=== PATIENT | male | born 1970 | race Caucasian/White ===

== ENCOUNTER 2020-07-08 08:50 | Inpatient (IN) ==
--- NOTE | 2020-07-08 09:55 | Emergency Department Note ---
Impression & Plan Diabetic peripheral neuropathy associated with type 1 diabetes mellitus, Diabetic ulcer of toe of left foot associated with diabetes mellitus due to underlying condition, with necrosis of bone, Osteomyelitis of toe of left foot ED Provider Note CHIEF COMPLAINT: Left foot/toe wound HISTORY OF PRESENTING ILLNESS: This is a 49-year-old male who presents to the emergency department by private vehicle with complaint of a left toe wound that he first noticed about 5 days ago. Patient states that he has followed at [facility] wound care for another diabetic ulcer on the left foot for the past 1 month that he states has been improving. He states that he showed this new wound to his wound care nurse and they were concerned for an infection and sent him here for evaluation. Patient denies any fevers or chills. He states he has very bad neuropathy in his feet and has not noticed any pain. He does not recall any known injury to the foot, but does note that the toe is significantly swollen from normal. He states "when I first found it, my little toe was almost going into the other toe and I had to pull it out, that is when I saw the hole in my toe."He denies any pain and rates his pain level 0/10. He states that his tetanus is up-to-date. REVIEW OF SYSTEMS: A complete 10 point review of systems was reviewed with the patient with pertinent positives and negatives as per history of present illness. All else were negative. PAST MEDICAL HISTORY: Type 2 diabetes, hypertension, diabetic foot ulcer, diabetic peripheral neuropathy SOCIAL HISTORY: Lives at home, he denies tobacco use ALLERGIES: Reviewed in chart and with the patient PHYSICAL EXAM: CONSTITUTIONAL: Pleasant and cooperative. Nontoxic-appearing and in no acute distress. Well appearing and well nourished. HEENT: Normocephalic, atraumatic. NECK: Supple, full active range of motion without discomfort. RESPIRATORY: Clear to auscultation bilaterally with no wheezing, crackles, rhonchi or stridor. Equal expansion bilaterally. CARDIOVASCULAR: Regular rate and rhythm with no murmurs, rubs or gallops. Normal peripheral perfusion. No edema. GASTROINTESTINAL: Soft, nontender, nondistended. Bowel sounds present in all quadrants. MUSCULOSKELETAL: There is a diabetic ulcer on the ball of the left foot which appears to be healing fairly well. The left fourth toe appears swollen, erythematous, and is notable to have a deep ulceration on the lateral aspect of the toe. There is no erythema, swelling, or lymphangitic streaking involving the rest of the foot. Full range of motion of the left ankle with no pain. Capillary refill 2-3 seconds. INTEGUMENTARY: No rash or other significant dermatologic conditions noted. NEUROLOGIC: Alert and oriented X 4 with normal affect. Normal strength in all 4 extremities. Poor sensation to light touch in the bilateral feet, but able to move the toes normally. Normal speech. ED COURSE AND MEDICAL DECISION MAKING: CC: Patient presenting with complaint of left foot/toe wound DIFFERENTIAL DIAGNOSIS: Includes, but not limited to diabetic foot ulcer, nicholas lulitis, osteomyelitis, MRSA infection, fracture, dislocation, retained foreign body, among others. INTERPRETATION OF LABS: No leukocytosis, no anemia, normal platelets, no significant electrolyte abnormalities, normal renal function elevated BUN with normal creatinine, mildly elevated ESR and CRP. MEDICATION RECONCILIATION: I attest that I have personally reviewed the patient's current medication list. INITIAL VITAL SIGNS REVIEW: I reviewed the patient's initial vital signs and interpret them as follows: T: Afebrile; BP: Normotensive; HR: Within normal limits; RR: Within normal limits; Pulse Ox: Within normal limits on room air. MDM SUMMARY: Patient was evaluated at bedside, history and physical exam performed. Patient is alert and oriented, in no acute distress, resting calmly in stretcher. He is afebrile and nontoxic-appearing. There is moderate swelling, erythema, and a deep ulceration on the lateral aspect of the left fourth toe. No purulent discharge or foul odor. Orders were placed for labs including inflammatory markers, blood cultures x2, x-rays of the left foot and left fourth toe to evaluate for diabetic foot wound/infection. Patient discussed with Dr. Hamlin, who agrees with my assessment, plan, and disposition. Labs and imaging reviewed, no leukocytosis or significant lab abnormalities. Mildly elevated inflammatory markers. X-rays of the foot and fourth toe notable for a subcentimeter area of osteomyelitis involving the distal lateral aspect of the fourth proximal phalanx with destruction of the distal articular cortex and associated joint space n arrowing of the fourth PIP joint suspicious for septic arthropathy. I spoke on the phone with Pepito Chowdhury PA-C with [facility] orthopedics, who agrees to evaluate the patient for possible surgery today. After evaluation by orthopedic surgery, it was felt that the patient should be admitted to the hospitalist team for IV antibiotics and they will plan to take him to the OR for toe amputation on morning. I spoke on the phone with Saad Sorto hospitalist, who agrees to evaluate the patient for the admission. She requested the patient be covered with vancomycin and Zosyn for now, these were ordered. Patient reassessed multiple times throughout ED stay, he has remained hem odynamically stable and afebrile, and pain-free. The patient was updated on all results and plan for admission and probable surgery, all questions were answered to the best of my ability and the patient verbalized understanding and agreement with this plan. The patient was stable at time of admission. The chart was completed utilizing [employer] Speech voice recognition software. Grammatical errors, random word insertions, pronoun errors, and incomplete sentences are an occasional consequence of this system due to software limitations, ambient noise, and hardware issues. Any formal questions or concerns about the content, text, or information contained within the body of this dictation should be directly addressed to the nurse practitioner for clarification. Past Med/Surg History Medical History (Updated 07/08/20 @ 18:31 by KELLEN Kiser) Acquired hallux valgus of right foot Acquired hammer toe of right foot Callus Diabetes mellitus, type II Foot ulcer due to secondary DM Hallux valgus (acquired), left foot Hammertoe of left foot Hypercholesterolemia Hypertension Surgical History Status post right foot surgery Family History Other Diabetes Lung cancer Social History Smoking Status: Never smoker Tobacco Type: Smokeless Tobacco (Dip or Chew) Hx Alcohol Use: Yes Alcohol type: beer and hard liquor Hx Substance Use: No Preferred Language: Jordanian Communication Ability: Effective Visual Impairment: No Limitations Hearing Ability: Normal County Court Judge Required: No Beliefs That Will Affect Care: None marital status: Current Living Situation: Spouse and Family Current Living Situation Comment: 2 kids, , & mother in law current occupational status: employed How many Children do You have: 2 Feels Safe at Home: Yes during the past year weight has: remained stable Assistive Devices: None Allergies Allergies Allergy/AdvReac Type Severity Reaction Status Date / Time ibuprofen [From Motrin] Allergy Intermediate Hives Verified 07/08/20 10:38 Home Meds Home Medications Medication Instructions Recorded Confirmed amlodipine 10 mg tablet 10 mg PO QAM 08/30/18 07/08/20 atorvastatin 20 mg tablet 20 mg PO QAM 08/30/18 07/08/20 lisinopril 20 mg tablet 20 mg PO QAM 08/30/18 07/08/20 metformin 1,000 mg tablet 1,000 mg PO BID 08/30/18 07/08/20 doxycycline hyclate 100 mg PO BID 07/08/20 07/08/20 empagliflozin [Jardiance] 10 mg PO QAM 07/08/20 07/08/20 Previous Rx's Medication Instructions Recorded Saccharomyces boulardii 250 mg 250 mg PO BID 60 Days #120 cap 07/04/20 capsule clindamycin HCl 300 mg capsule 300 mg PO tid 14 Days #42 cap 07/04/20 Results & Data (ED) Vital Signs Vital Signs - 24 hr 07/08/20 09:03 07/08/20 10:33 07/08/20 12:30 Temperature 36.5 C Temperature Source Temporal Artery Scan Pulse Rate 98 H Pulse Rate [Finger] 84 80 Respiratory Rate 16 18 16 Respiratory Effort / Characteristics Non-Labored Respiratory Depth Normal Normal Respiratory Pattern Regular Blood Pressure 113/74 Blood Pressure [Right Arm] 108/62 136/84 Blood Pressure Mean 87 Blood Pressure Mean [Right Arm] 77 101 Blood Pressure Position Sitting Pulse Oximetry 99 97 100 Oxygen Delivery Method Room Air Room Air Sepsis Recent Fever Within 48 Hours No Sepsis New/Unexplained Change in Mental Status Yes Sepsis Action Taken by Nursing No Action Required Laboratory Data Result diagrams: 07/08/20 10:04 07/08/20 10:04 Lab Results 07/08/20 07/08/20 07/08/20 Range/Units 10:04 10:04 10:04 WBC 8.23 (4.8-10.8) K/uL RBC 4.98 (4.7-6.1) M/uL Hgb 14.8 (14.0-18.0) g/dL Hct 41.5 L (42-52) % MCV 83.3 (80-100) fL MCH 29.7 (25-34) pg MCHC 35.7 (32-36) g/dL RDW Std Deviation 38.1 (36.4-46.3) fL RDW Coeff of Meño 12.6 (11.5-14.5) % Plt Count 316 (130-400) K/uL MPV 9.4 (7.4-10.4) fL Immature Gran % (Auto) 0.1 % Neut % (Auto) 71.0 % Lymph % (Auto) 17.6 % [place] % (Auto) 6.9 % Eos % (Auto) 3.9 % Baso % (Auto) 0.5 % Neut # (Auto) 5.84 (1.4-6.5) K/uL Lymph # (Auto) 1.45 (1.2-3.4) K/uL [place] # (Auto) 0.57 (0.11-0.59) K/uL Eos # (Auto) 0.32 (0-0.5) K/uL Baso # (Auto) 0.04 (0-0.2) K/uL Immature Gran # (Auto) 0.01 (0.00-0.02) K/uL ESR 35 H (0-15) mm/hr Sodium 135 L (136-145) mmol/L Potassium 4.8 (3.5-5.1) mmol/L Chloride 106 (98-107) mmol/L Carbon Dioxide 25 (21-32) mmol/L Anion Gap 4.0 (3-11) BUN 27 H (7-18) mg/dl Creatinine 0.99 (0.6-1.4) mg/dl Est Cr Clr Drug Dosing 105.6 ml/min Est GFR ( Amer) 103.2 Est GFR (Non-Af Amer) 89.1 BUN/Creatinine Ratio 27.6 H (10-20) Glucose 129 H (70-99) mg/dl Calcium 9.3 (8.5-10.1) mg/dl C-Reactive Protein 1.46 H (0-0.29) mg/dl COVID-19 Eval Order SARS-CoV-2 (PCR) (Negative) Influenza Type A (PCR) (Neg) Influenza Type B (PCR) (Neg) RSV (RT-PCR) (Neg) 07/08/20 07/08/20 Range/Units 12:35 12:35 WBC (4.8-10.8) K/uL RBC (4.7-6.1) M/uL Hgb (14.0-18.0) g/dL Hct (42-52) % MCV (80-100) fL MCH (25-34) pg MCHC (32-36) g/dL RDW Std Deviation (36.4-46.3) fL RDW Coeff of Meño (11.5-14.5) % Plt Count (130-400) K/uL MPV (7.4-10.4) fL Immature Gran % (Auto) % Neut % (Auto) % Lymph % (Auto) % [place] % (Auto) % Eos % (Auto) % Baso % (Auto) % Neut # (Auto) (1.4-6.5) K/uL Lymph # (Auto) (1.2-3.4) K/uL [place] # (Auto) (0.11-0.59) K/uL Eos # (Auto) (0-0.5) K/uL Baso # (Auto) (0-0.2) K/uL Immature Gran # (Auto) (0.00-0.02) K/uL ESR (0-15) mm/hr Sodium (136-145) mmol/L Potassium (3.5-5.1) mmol/L Chloride (98-107) mmol/L Carbon Dioxide (21-32) mmol/L Anion Gap (3-11) BUN (7-18) mg/dl Creatinine (0.6-1.4) mg/dl Est Cr Clr Drug Dosing ml/min Est GFR ( Amer) Est GFR (Non-Af Amer) BUN/Creatinine Ratio (10-20) Glucose (70-99) mg/dl Calcium (8.5-10.1) mg/dl C-Reactive Protein (0-0.29) mg/dl COVID-19 Eval Order CovFluRsv at [facility] SARS-CoV-2 (PCR) NEGATIVE (Negative) Influenza Type A (PCR) Negative (Neg) Influenza Type B (PCR) Negative (Neg) RSV (RT-PCR) Negative (Neg) Administered Medications Heparin Sodium (Porcine) (Heparin Sod 5,000 Unit/0.5 Ml Vial) 5,000 units SQ Q8 [facility] Stop: 07/09/20 13:59 Last Admin: 07/08/20 16:25 Dose: 5,000 units Documented by: [id number] Insulin Aspart (Insulin Aspart 100 Units/Ml 3 Ml Pen) 0 units SC ACHS [facility] Stop: 08/07/20 16:29 Last Admin: 07/08/20 17:48 Dose: 8 units Documented by: [id number] Cosigned by: [id number] Discontinued Medications Vancomycin HCl 2,500 mg/ (Sodium Chloride) 550 mls @ 200 mls/hr IV NOW ONE Stop: 07/08/20 16:04 Last Infusion: 07/08/20 17:52 Dose: 0 mls/hr Documented by: [id number] Admin: 07/08/20 14:19 Dose: 200 mls/hr Documented by: [id number] Piperacillin Sod/Tazobactam Sod (Zosyn) 4.5 gm in 120 mls @ 240 mls/hr IV NOW ONE Stop: 07/08/20 13:49 Last Infusion: 07/08/20 14:30 Dose: 0 mls/hr Documented by: [id number] Admin: 07/08/20 13:57 Dose: 240 mls/hr Documented by: [id number] Imaging Data Radiologist's Impression: Foot X-Ray 07/08/20 09:51 XR toe(s) LT min 2V, XR foot LT min 3V routine HISTORY: 49 years-old Male 4th toe, eval fx, osteo chronic pain of the left fourth toe with diabetic ulcer COMPARISON: None TECHNIQUE: 3 views of the left fourth toe with 3 views of the left foot FINDINGS: FOOT: Mild soft tissue swelling of the forefoot. No acute fracture or dislocation. Bipartite medial hallux sesamoid. No significant osteoarthritis. There is a 7 mm area of osseous erosion involving the distal lateral aspect of the fourth proximal phalanx with destruction of the mid and lateral distal articular cortex. There is associated moderate joint space narrowing of the fourth PIP joint. Moderate fourth digit soft tissue swelling. TOES: Osseous erosion as above involving the fourth proximal phalanx. IMPRESSION: Subcentimeter area of osteomyelitis involves the distal lateral aspect of the fourth proximal phalanx with partial destruction of the distal articular cortex. Moderate associated joint space narrowing of the fourth PIP joint is suspicious for associated septic arthropathy. ACT 112: Negative or not required by law. The above report was generated using voice recognition software. It may contain grammatical, syntax or spelling errors. Electronically signed by: Shakir Kamara M.D. 07/08/2020 10:28 AM Toe X-Ray 07/08/20 09:51 XR toe(s) LT min 2V, XR foot LT min 3V routine HISTORY: 49 years-old Male 4th toe, eval fx, osteo chronic pain of the left fourth toe with diabetic ulcer COMPARISON: None TECHNIQUE: 3 views of the left fourth toe with 3 views of the left foot FINDINGS: FOOT: Mild soft tissue swelling of the forefoot. No acute fracture or dislocation. Bipartite medial hallux sesamoid. No significant osteoarthritis. There is a 7 mm area of osseous erosion involving the distal lateral aspect of the fourth proximal phalanx with destruction of the mid and lateral distal articular cortex. There is associated moderate joint space narrowing of the fourth PIP joint. Moderate fourth digit soft tissue swelling. TOES: Osseous erosion as above involving the fourth proximal phalanx. IMPRESSION: Subcentimeter area of osteomyelitis involves the distal lateral aspect of the fourth proximal phalanx with partial destruction of the distal articular cortex. Moderate associated joint space narrowing of the fourth PIP joint is suspicious for associated septic arthropathy. ACT 112: Negative or not required by law. The above report was generated using voice recognition software. It may contain grammatical, syntax or spelling errors. Electronically signed by: Shakir Kamara M.D. 07/08/2020 10:28 AM Discharge Plan Visit Data Chief Complaint: Foot Injury/Pain Stated Complaint: REFERRED BY ED Provider: Antwan Hamlin ED Midlevel Provider: Radha Fonseca Discharge Problem: Diabetic peripheral neuropathy associated with type 1 diabetes mellitus, Diabetic ulcer of toe of left foot associated with diabetes mellitus due to underlying condition, with necrosis of bone, Osteomyelitis of toe of left foot Patient Disposition: Admitted As Inpatient Condition: Good Discharge Instructions Interventions: ED Discharge Assessment Last Done: 07/08/20 14:36
[2020-07-08 10:19] LABS: Basophils # (auto) 0.04 K/uL (0-0.2); Basophils % (auto) 0.5 %; Eosinophils # (auto) 0.32 K/uL (0-0.5); Eosinophils % (auto) 3.9 %; Hematocrit (blood only) 41.5 % (42-52); Hemoglobin 14.8 g/dL (14.0-18.0); Immature Granulocytes # (auto) 0.01 K/uL (0.00-0.02); Immature Granulocytes % (auto) 0.1 %; Lymphocytes # (auto) 1.45 K/uL (1.2-3.4); Lymphocytes % (auto) 17.6 %; Mean Corpuscular Hemoglobin 29.7 pg (25-34); Mean Corpuscular Hgb Conc 35.7 g/dL (32-36); Mean Corpuscular Volume 83.3 fL (80-100); Mean Platelet Volume 9.4 fL (7.4-10.4); Monocytes # (auto) 0.57 K/uL (0.11-0.59); Monocytes % (auto) 6.9 %; Neutrophils # (auto) 5.84 K/uL (1.4-6.5); Platelet Count 316 K/uL (130-400); RDW Coefficient of Variation 12.6 % (11.5-14.5); RDW Standard Deviation 38.1 fL (36.4-46.3); Red Blood Count 4.98 M/uL (4.7-6.1); White Blood Count 8.23 K/uL (4.8-10.8)
--- NOTE | 2020-07-08 10:29 | XRay Report ---
XR toe(s) LT min 2V, XR foot LT min 3V routine HISTORY: 49 years-old Male 4th toe, eval fx, osteo chronic pain of the left fourth toe with diabetic ulcer COMPARISON: None TECHNIQUE: 3 views of the left fourth toe with 3 views of the left foot FINDINGS: FOOT: Mild soft tissue swelling of the forefoot. No acute fracture or dislocation. Bipartite medial hallux sesamoid. No significant osteoarthritis. There is a 7 mm area of osseous erosion involving the distal lateral aspect of the fourth proximal phalanx with destruction of the mid and lateral distal articul ar cortex. There is associated moderate joint space narrowing of the fourth PIP joint. Moderate fourt h digit soft tissue swelling. TOES: Osseous erosion as above involving the fourth proximal phalanx. IMPRESSION: Subcentimeter area of osteomyelitis involves the distal lateral aspect of the fourth prox imal phalanx with partial destruction of the distal articular cortex. Moderate associated joint space narrowing of the fourth PIP joint is suspicious for associated septic arthropathy. ACT 112: Negative or not required by law. The above report was generated using voice recognition software. It may contain grammatical, syntax o r spelling errors. Electronically signed by: Shakir Kamara M.D. 07/08/2020 10:28 AM
[2020-07-08 10:38] LABS: BUN Creatinine Ratio 27.6 (10-20); Calcium 9.3 mg/dl (8.5-10.1); Creatinine Clr Calc Pharmacy 105.6 ml/min; Est GFR (African American) 103.2; Est GFR (Non-African American) 89.1; Potassium 4.8 mmol/L (3.5-5.1)
[2020-07-08 10:39] LABS: C Reactive Protein 1.46 mg/dl (0-0.29)
[2020-07-08] MEDS ORDERED: PIPERACILL/TAZOBAC CONSULT ACTIVE PRN (13:20)
[2020-07-08] MEDS ORDERED: PIPERACILLIN/TAZOBACTAM 4.5 GM/120 ML BAG IV ONE (13:20)
[2020-07-08] MEDS ORDERED: VANCOMYCIN HCL 2,500 MG in SODIUM CHLORIDE 0.9% 500 ML IV ONE (13:20)
[2020-07-08] MEDS ORDERED: VANCOMYCIN CONSULT ACTIVE PRN (13:20)
--- NOTE | 2020-07-08 13:53 | History & Physical Report ---
Date of Service July 08, 2020 Assessment & Plan (1) Osteomyelitis of toe of left foot: (2) Cellulitis of toe of left foot: (3) Diabetic ulcer of toe of left foot associated with diabetes mellitus due to underlying condition, with necrosis of bone: This is a 49yo M with a PMH of DM II, HTN, tobacco use and chronic diabetic foot wound who presents from wound care clinic with new wound on left fourth toe with evidence on XR of osteomyelitis. Toe and L foot XR with subcentimeter area of osteomyelitis involves the distal lateral aspect of the fourth proximal phalanx with partial destruction of the distal articular cortex. Moderate associated joint space narrowing of the fourth PIP joint is suspicious for assoc. septic arthropathy Afebrile, VS stable, no leukocytosis. Non toxic in appearance Has been on PO Clinda and doxy for wound on plantar aspect of L foot Evaluated by orthopedic service in ED. Recommending IV antibiotics and OR on Started IV vancomycin and Zosyn. Follow cultures Orthopedic service consulted (4) Diabetes mellitus, type II: Hold home agents SSI while in-patient BSG AC HS (5) Hypertension: Continue amlodipine and lisinopril DVT Ppx: SQ heparin Code status: FULL PCP: Fab Dispo: Admitted to med/surg. Plan to return home once medically stable. Patient seen in collaboration with Dr. Ross. Please see addendum. History of Present Illness Chief Complaint: L foot wound Primary Care Provider: Wilner Sanon DO This is a 49yo M with a PMH of DM II, HTN, tobacco use and chronic diabetic fo ot wound who presents from wound care clinic with new wound on left fourth toe. Patient has been following for wound on plantar aspect of left foot currently treated with clindamycin and doxycycline. Due to severe neuropathy, patient has no feeling in either foot and did not notice a new wound on lateral aspect of fourth toe until 3 days ago, when he took wrapping off of foot and had purulent drainage. Was seen in wound care clinic today for this new wound and was directed to ED for further evaluation. Denies any fever or chills. No headache, lightheadedness, chest pain, shortness of breath, nausea, vomiting, abdominal pain, dysuria, diarrhea or constipation. Allergies Allergy/AdvReac Type Severity Reaction Status Date / Time ibuprofen [From Motrin] Allergy Intermediate Hives Verified 07/08/20 10:38 Home Medications Medication Instructions Recorded Confirmed Type amlodipine 10 mg tablet 10 mg PO QAM 08/30/18 07/08/20 History atorvastatin 20 mg tablet 20 mg PO QAM 08/30/18 07/08/20 History lisinopril 20 mg tablet 20 mg PO QAM 08/30/18 07/08/20 History metformin 1,000 mg tablet 1,000 mg PO BID 08/30/18 07/08/20 History Saccharomyces boulardii 250 mg 250 mg PO BID 60 Days #120 cap 07/04/20 07/08/20 Rx capsule clindamycin HCl 300 mg capsule 300 mg PO tid 14 Days #42 cap 07/04/20 07/08/20 Rx doxycycline hyclate 100 mg PO BID 07/08/20 07/08/20 History empagliflozin [Jardiance] 10 mg PO QAM 07/08/20 07/08/20 History Past Med/Surg History Medical History (Updated 07/08/20 @ 15:26 by Alana Eubanks PA-C) Acquired hallux valgus of right foot Acquired hammer toe of right foot Callus Diabetes mellitus, type II Hallux valgus (acquired), left foot Hammertoe of left foot Hypercholesterolemia Hypertension Surgical History Status post right foot surgery Family History Other Diabetes Lung cancer Social History Smoking Status: Never smoker Tobacco Type: Smokeless Tobacco (Dip or Chew) Hx Alcohol Use: Yes Alcohol type: beer and hard liquor Hx Substance Use: No Preferred Language: Greenlandic Communication Ability: Effective Visual Impairment: No Limitations Hearing Ability: Normal [place] Stained Glass Required: No Beliefs That Will Affect Care: None marital status: Current Living Situation: Spouse and Family Current Living Situation Comment: 2 kids, , & mother in law current occupational status: employed How many Children do You have: 2 Feels Safe at Home: Yes during the past year weight has: remained stable Assistive Devices: None Review of Systems Review of Systems: At least ten systems reviewed and negative except as noted in the HPI. Physical Exam Physical Exam: General Appearance: WD/WN, vitals as above, NAD, sitting up in bed, pleasant, conversing easily Head: normocephalic, atraumatic Eyes: normal inspection, PERRL, conjunctivae normal, anicteric sclerae ENT: external ear and nose normal, oropharynx normal Neck: normal visual inspection, trachea midline, no thyromegaly Respiratory: normal respiratory effort, lungs clear to auscultation, no wheeze, rales, rhonchi. No accessory muscle use Cardiovascular: regular rate, rhythm, no murmur, normal peripheral pulses, no BLE edema. Vessels: no JVD Chest: normal inspection of chest Abdomen/GI: normal bowel sounds, soft, nontender, no hepatosplenomegaly Extremities/Musculoskeletal: L plantar aspect of foot with half dollar size ulceration. No drainage or surrounding erythema. L lateral 4th toe wound with purulent drainage, foul odor. No cyanosis or clubbing, extremities motor strength 5/5 Neurologic: PERRL, EOMI, accommodation nl, no face palsy, no dysarthria, CN's II-XI intact bilaterally and moves all extremities Psychiatric: A+Ox3, euthymic affect Skin: no rashes, normal color, warm/dry Results & Data Results & Data ([facility]) Vital Signs (Past 12 Hours) Vital Signs Temp Pulse Pulse Resp BP BP Pulse Ox 07/08/20 12:30 80 16 136/84 100 07/08/20 10:33 84 18 108/62 97 07/08/20 09:03 36.5 C 98 H 16 113/74 99 Laboratory Results Short CBC 07/08/20 Range/Units 10:04 WBC 8.23 (4.8-10.8) K/uL Hgb 14.8 (14.0-18.0) g/dL Hct 41.5 L (42-52) % Plt Count 316 (130-400) K/uL BMP 07/08/20 10:04 Sodium 135 L Potassium 4.8 Chloride 106 Carbon Dioxide 25 BUN 27 H Creatinine 0.99 Glucose 129 H Calcium 9.3 Diagnostic Findings Foot X-Ray 07/08/20 09:51 XR toe(s) LT min 2V, XR foot LT min 3V routine HISTORY: 49 years-old Male 4th toe, eval fx, osteo chronic pain of the left fourth toe with diabetic ulcer COMPARISON: None TECHNIQUE: 3 views of the left fourth toe with 3 views of the left foot FINDINGS: FOOT: Mild soft tissue swelling of the forefoot. No acute fracture or dislocation. Bipartite medial hallux sesamoid. No significant osteoarthritis. There is a 7 mm area of osseous erosion involving the distal lateral aspect of the fourth proximal phalanx with destruction of the mid and lateral distal articular cortex. There is associated moderate joint space narrowing of the fourth PIP joint. Moderate fourth digit soft tissue swelling. TOES: Osseous erosion as above involving the fourth proximal phalanx. IMPRESSION: Subcentimeter area of osteomyelitis involves the distal lateral aspect of the fourth proximal phalanx with partial destruction of the distal articular cortex. Moderate associated joint space narrowing of the fourth PIP joint is suspicious for associated septic arthropathy. ACT 112: Negative or not required by law. The above report was generated using voice recognition software. It may contain grammatical, syntax or spelling errors. Electronically signed by: Shakir Kamara M.D. 07/08/2020 10:28 AM Toe X-Ray 07/08/20 09:51 XR toe(s) LT min 2V, XR foot LT min 3V routine HISTORY: 49 years-old Male 4th toe, eval fx, osteo chronic pain of the left fourth toe with diabetic ulcer COMPARISON: None TECHNIQUE: 3 views of the left fourth toe with 3 views of the left foot FINDINGS: FOOT: Mild soft tissue swelling of the forefoot. No acute fracture or dislocation. Bipartite medial hallux sesamoid. No significant osteoarthritis. There is a 7 mm area of osseous erosion involving the distal lateral aspect of the fourth pro ximal phalanx with destruction of the mid and lateral distal articular cortex. There is associated moderate joint space narrowing of the fourth PIP joint. Moderate fourth digit soft tissue swelling. TOES: Osseous erosion as above involving the fourth proximal phalanx. IMPRESSION: Subcentimeter area of osteomyelitis involves the distal lateral aspect of the fourth proximal phalanx with partial destruction of the distal articular cortex. Moderate associated joint space narrowing of the fourth PIP joint is suspicious for associated septic arthropathy. ACT 112: Negative or not required by law. The above report was generated using voice recognition software. It may contain grammatical, syntax or spelling errors. Electronically signed by: Shakir Kamara M.D. 07/08/2020 10:28 AM Code Status & VTE Plan VTE Prophylaxis Plan VTE Prophylaxis will be ordered: Yes Supervising Physician Co-Signing Physician Notes I saw this patient with the physician special education teaching assistant, I participated in the history, physical, review of systems, and physical exam. I reviewed the medications with the patient and the physician special education teaching assistant and helped reconcile the medications. I helped take a detailed family and social history as well. I formulated the assessment and plan personally with the physician special education teaching assistant and went over it with the patient. ROS-No Headache, No Visual Changes, No Nausea, No Vomiting, No Fever, No Chills, No Neck Pain or Stiffness, No Chest Pain, No Palpitations, No SOB, No MALDONADO, No Cough, No Sputum, No Wheezing, No Abdominal Pain, No Diarrhea, No Hematemesis, No Hemoptysis, No Unexpected Weight Loss, No Flank pain, No Melena, No Hematochezia, No Frequency, No Urgency, No Burning, No Hematuria, No Rashes, No Diaphoresis. Appetite is Normal, Denies pain Physical Exam Gen-AAO x 3, NAD, Afebrile Head-NCAT, EOMI, PERRLA, Anicteric Sclera, No Posterior Pharyngeal Erythema Neck-Supple, No JVD, No Thyromegaly, No Masses, No LAD, No Bruits Lungs-Clear to Auscultation Bilaterally, No Rales, No Rhonchi, No Wheezing, No Crepitus Chest-No S4, +S1, +S2, No S3, No Murmurs, No Rubs, No Gallops, No Ectopy Abdomen-Soft, Bowel Sounds Present, Non Tender, Non Distended, No Hepatomegaly, No Splenomegaly, No Palpable Masses, No Rebound, No Rigidity, No Guarding Musculoskeletal-Full Range of Motion Bilaterally, No CVAT Extremities-No Cyanosis, No Clubbing, No Edema, L Foot c unstageable DFU c DC, Ischemic 4th toe Nuero-Cranial Nerves II-XII grossly intact, Motor WNL, DTRs WNL, Strength WNL, Non Focal Psych-Normal Mood
[2020-07-08 13:59] LABS: Influenza A virus by PCR Negative (Neg); Influenza B virus by PCR Negative (Neg); RSV by PCR Negative (Neg); SARS CoV2 RNA(COVID-19) InHosp NEGATIVE (Negative)
[2020-07-08] MEDS ORDERED: ONDANSETRON INJ 2 MG/ML 2 ML VIAL IV PRN (14:53)
[2020-07-08] MEDS ORDERED: ACETAMINOPHEN 325 MG TAB PO PRN (14:53)
[2020-07-08] MEDS ORDERED: POLYETHYLENE (MIRALAX) 17 GM PACK PO PRN (14:53)
--- NOTE | 2020-07-08 15:12 | Pharmacy Report ---
Pharmacy Abx Initial Consult - Date of Service July 08, 2020 - Pharmacy Dosing Scope Date of Consult: 07/08 Consultation requested by: Alana Eubanks Pharmacy is consulted to initiate vancomycin and zosyn IV/PO dosing therapy, order appropriate labs and adjust drug dose/frequency. - Subjective The patient is a 49 year old M admitted on 07/08/20 13:47. - Objective Height: 5 ft 10 in Weight: 97.2 kg Vital Signs (Past 12hrs): Vital Signs Temp Pulse Pulse Resp BP BP Pulse Ox 07/08/20 12:30 80 16 136/84 100 07/08/20 10:33 84 18 108/62 97 07/08/20 09:03 36.5 C 98 H 16 113/74 99 Lab Results (24hrs): Laboratory Tests (24 Hours) 07/08/20 07/08/20 07/08/20 10:04 10:04 10:04 WBC 8.23 Neut # (Auto) 5.84 ESR 35 H Creatinine 0.99 Est Cr Clr Drug Dosing 105.6 C-Reactive Protein 1.46 H Micro Results: 07/08/20 10:19 Aerobic Blood Culture - Pending Blood Anaerobic Blood Culture - Pending 07/08/20 10:00 Aerobic Blood Culture - Pending Blood Anaerobic Blood Culture - Pending - Risk Factors for Resistance * History of infection with a multidrug-resistant organism: staph, group b strep - foot cx * Antimicrobial use within the last 90 days - clinda, doxy - Assessment & Plan Assessment 49 year old with PMHx of DM2, htn, tobacco use and chronic diabetic foot infections. Following wound clinic and being treated for plantar on left foot with clindamycin and doxycycline. Foot xray is positive for osteomyelitis. Blood cultures are pending Plan Vancomycin IV * Received loading dose of vancomycin 2500 mg x 1 (~25 mg/kg/dose) * Plan to start vancomycin 1500 mg iv q 8 hrs as per vancomcyin AUC nomogram dosing * Plan to order level prior to the 0600 dose on 07/10 to ensure therapeutic * May order level sooner if renal function changes Piperacillin/tazobactam * 4.5 gm x 1, 4.5 gm iv q 8 hr - higher dosing selected due to bone/joint infection Pharmacy will continue to follow and will adjust dose/frequency as necessary. Thank you.
[2020-07-08] MEDS ORDERED: GLUCAGON FOR INJ 1 MG VIAL SQ PRN (15:35)
[2020-07-08] MEDS ORDERED: CARBOHYDRATES FOR HYPOGLYCEMIA PO PRN (15:35)
[2020-07-08] MEDS ORDERED: DEXTROSE 50% 50 ML SYRINGE IV PRN (15:35)
[2020-07-08] MEDS ORDERED: GLUCOSE 10 TABS/TUBE PO PRN (15:35)
[2020-07-08] MEDS ORDERED: GLUCOSE 40% GEL 15 GM TUBE PO PRN (15:35)
--- NOTE | 2020-07-08 16:19 | Orthopedic Consultation ---
Date of Consultation July 08, 2020 Assessment & Plan (1) Osteomyelitis of toe of left foot: I had a thorough discussion with the patient and educated him regarding today's findings. Given the ulceration and infection, it is recommended that he have amputation of the toe. The toe currently exhibits cellulitis, and would benefit from a few days of IV antibiotics. The plan would be to admit him for IV antibiotics now, and perform toe amputation on if the skin improves. Patient is aware and is in agreement. I will speak with the [facility] hospitalist team. He may eat today. He will be n.p.o. after midnight on Tuesday. He is currently afebrile but does have elevated inflammatory markers. He understands that if treatment is declined and the infection were to progress, he may require a more aggressive amputation. He will be seen later today by Dr. Graham. Antibiotic treatment may be determined by the Hospitalist service. Covid testing has already been obtained. History of Present Illness Reason for Consultation: Left 4th toe ulceration Attending Physician: Blue Ross DO History of Present Illness This 49-year-old with male is seen today in the ED for orthopedic consultation regarding his left fourth toe. Patient states he was at the wound care center this morning and was referred to the ED for evaluation of his foot. He is a known diabetic and has had ulcerations on his feet in the past. He does smoke. He has managed his foot ulcerations in the past and has used conservative treatment including casting, cam boots, and unloading wedges. He states he has an ulcer on the bottom of his left foot. He has been treating it with metatarsal pads and gauze type dressings over the last week, and is on Clindamycin and Doxycycline as well. He has been wrapping the foot fairly tightly. Because of his lack of sensation, he did not notice a pressure ulcer developing on the lateral border of the fourth toe. He noticed abnormal skin color and skin tone on the lateral border of the toe3 days ago. He rubbed it and the skin broke open, draining significant material. He waited 2 days for evaluation at the wound care center. He denies any fevers or chills. No streaking of the foot. He denies any pain. He states his blood sugars have been fairly well controlled and believes his A1c is in the 7 range. Allergies Allergy/AdvReac Type Severity Reaction Status Date / Time ibuprofen [From Motrin] Allergy Intermediate Hives Verified 07/08/20 10:38 Home Medications Medication Instructions Recorded Confirmed Type amlodipine 10 mg tablet 10 mg PO QAM 08/30/18 07/08/20 History atorvastatin 20 mg tablet 20 mg PO QAM 08/30/18 07/08/20 History lisinopril 20 mg tablet 20 mg PO QAM 08/30/18 07/08/20 History metformin 1,000 mg tablet 1,000 mg PO BID 08/30/18 07/08/20 History Saccharomyces boulardii 250 mg 250 mg PO BID 60 Days #120 cap 07/04/20 07/08/20 Rx capsule clindamycin HCl 300 mg capsule 300 mg PO tid 14 Days #42 cap 07/04/20 07/08/20 Rx doxycycline hyclate 100 mg PO BID 07/08/20 07/08/20 History empagliflozin [Jardiance] 10 mg PO QAM 07/08/20 07/08/20 History Patient History Medical History (Updated 07/08/20 @ 16:22 by Pepito Chowdhury PA-C) Acquired hallux valgus of right foot Acquired hammer toe of right foot Callus Diabetes mellitus, type II Foot ulcer due to secondary DM Hallux valgus (acquired), left foot Hammertoe of left foot Hypercholesterolemia Hypertension Surgical History Status post right foot surgery Family History Other Diabetes Lung cancer Social History Smoking Status: Never smoker Tobacco Type: Smokeless Tobacco (Dip or Chew) Hx Alcohol Use: Yes Alcohol type: beer and hard liquor Hx Substance Use: No Preferred Language: Botswanan Communication Ability: Effective Visual Impairment: No Limitations Hearing Ability: Normal Resp Therapist Required: No Beliefs That Will Affect Care: None marital status: Current Living Situation: Spouse and Family Current Living Situation Comment: 2 kids, , & mother in law current occupational status: employed How many Children do You have: 2 Feels Safe at Home: Yes during the past year weight has: remained stable Assistive Devices: None Review of Systems Review of Systems: All systems reviewed & are unremarkable except as noted in HPI & below A total of 10 systems were reviewed. Physical Exam Physical Exam: General: Well-developed, well-nourished, middle-aged white male, in no acute distress. Sitting on the bed. Alert and oriented. Conversive. Skin: Warm and dry with good turgor. Patient has a large ulceration present on the plantar surface of his foot at the first MTP joint. Granulation tissue is visible. It looks relatively healthy. Approximately 2 cm in diameter. He also has a second ulceration present on the lateral border of his fourth toe. It is approximately 13 mm in diameter. It is full-thickness and there is bone exposed. Mucopurulent material is present. Toe is erythemic and edematous. This extends back to the MTP joint. There is no lymphangitis. There does not appear to be any involvement of the actual foot. No involvement of the little toe. Musculoskeletal: Gross motor function of the toes and ankle is intact and unremarkable. Neurologic: Gross sensation is intact across the lower extremity by soft touch. He actually has intact sensation to about the transmetatarsal line dorsally. Distal to this, there is significant decrease in his sensation. He has totally absent sensation on the plantar surface of his foot along the lateral border, heel, and metatarsal heads. There is sensation through the longitudinal arch only. Peripheral pulses are 2+ at the ankle. Capillary refill is equal to the toes. Results & Data ([facility]) Vital Signs (Past 12 Hours) Vital Signs Temp Pulse Pulse Resp BP BP Pulse Ox 07/08/20 15:46 37.2 C 86 18 126/81 98 07/08/20 12:30 80 16 136/84 100 07/08/20 10:33 84 18 108/62 97 07/08/20 09:03 36.5 C 98 H 16 113/74 99 Laboratory Results Labs WBCs 8.23, platelets 316,000, ESR 35, BUN 27, Creatinine 0.99. glucose of 129, C-reactive protein elevated at 1.46. Diagnostic Findings Radiographic imaging obtained today of the foot was reviewed. It shows significant erosion of his fourth proximal phalanx distally. There is destruction of the articular surface distally. This is consistent with osteomyelitis. Films were also reviewed with Dr. Graham.
[2020-07-08] MEDS: HEPARIN SOD 5,000 UNIT/0.5 ML VIAL SQ SCH ×2 (16:25→21:02)
[2020-07-08] MEDS: INSULIN ASPART 100 UNITS/ML 3 ML PEN SC SCH ×2 (17:48→21:00)
[2020-07-08] MEDS: PIPERACILLIN/TAZOBACTAM 4.5 GM in DEXTROSE 5% 100 ML IV SCH (19:19)
[2020-07-08] MEDS: SACCHAROMYCES BOULARDII 250 MG CAP PO SCH (21:02)
[2020-07-08] MEDS: VANCOMYCIN HCL 1,250 MG in SODIUM CHLORIDE 0.9% 250 ML IV SCH (21:54)
[2020-07-08] MEDS ORDERED: VANCOMYCIN HCL 1,500 MG in SODIUM CHLORIDE 0.9% 500 ML IV SCH (22:00)
[2020-07-09] MEDS: PIPERACILLIN/TAZOBACTAM 4.5 GM in DEXTROSE 5% 100 ML IV SCH ×3 (04:03→19:04)
[2020-07-09] MEDS: VANCOMYCIN HCL 1,250 MG in SODIUM CHLORIDE 0.9% 250 ML IV SCH ×3 (05:37→21:54)
[2020-07-09] MEDS: HEPARIN SOD 5,000 UNIT/0.5 ML VIAL SQ SCH (05:39)
[2020-07-09 07:20] LABS: Hematocrit (blood only) 40.4 % (42-52); Hemoglobin 14.1 g/dL (14.0-18.0); Mean Corpuscular Hemoglobin 29.4 pg (25-34); Mean Corpuscular Hgb Conc 34.9 g/dL (32-36); Mean Corpuscular Volume 84.2 fL (80-100); Mean Platelet Volume 9.4 fL (7.4-10.4); Platelet Count 272 K/uL (130-400); RDW Coefficient of Variation 12.6 % (11.5-14.5); RDW Standard Deviation 38.3 fL (36.4-46.3); White Blood Count 6.73 K/uL (4.8-10.8)
[2020-07-09] MEDS: ATORVASTATIN 20 MG TAB PO SCH (07:21)
[2020-07-09] MEDS: SACCHAROMYCES BOULARDII 250 MG CAP PO SCH ×2 (07:21→20:53)
[2020-07-09] MEDS: lisinopril 20 MG TAB PO SCH (07:21)
[2020-07-09] MEDS: amLODIPine BESYLATE 5 MG TAB PO SCH (07:22)
[2020-07-09 07:55] LABS: BUN Creatinine Ratio 21.4 (10-20); Calcium 9.6 mg/dl (8.5-10.1); Creatinine Clr Calc Pharmacy 99.6 ml/min; Est GFR (African American) 97.3; Est GFR (Non-African American) 83.9; Potassium 4.7 mmol/L (3.5-5.1)
--- NOTE | 2020-07-09 08:00 | Consultation Report ---
DATE OF CONSULTATION: 07/08/2020 The patient is seen in conjunction with Pepito Chowdhury. For further details, refer to his dictation. He and I saw and evaluated this patient and I am in agreement with findings and plan. Rene is known to me from previous outpatient foot issues. One month ago, he developed an ulceration under the plantar aspect of the first metatarsophalangeal joint. He started treating this on his own for the first 3 weeks. He thinks that this was due to improperly or loose fitting orthotics and sweating as well as being on his feet. He subsequently was doing some wrapping of his foot and Tuesday developed a lesion on the fourth toe. Previously, he had not had any issues with the left foot fourth toe. His health history is noted. Diabetes with neuropathy. He had surgery on his right foot for diabetic infection. He uses tobacco. He does report that he engages in regular diabetic foot care. Dorsalis pedis and posterior tibial pulses are 1+ palpable. The arch is intact and the foot is plantigrade. There is good movement of the ankle and subtalar joints and there is dorsiflexion beyond neutral with the hindfoot inverted both with the knee flexed and extended. There is a 2 x 2.5 cm ulceration under the metatarsophalangeal joint, which is through the skin down into the dermis with no exposed bone. There is no surrounding erythema or drainage. There is diminished sensation throughout the forefoot. The fourth toe is red and swollen. There is an ulceration laterally where the fifth toe would touch it. This is full thickness through skin and subcutaneous tissues with palpable bone. There is no significant erythema or swelling of the foot. Wound care report is noted. H and P is reviewed. He is afebrile. His white count is normal. X-rays reviewed showing no evidence of fracture or dislocation, but he does have a soft tissue wound over the fourth toe with an erosion consistent with osteomyelitis. Report is noted. The first metatarsophalangeal joint area looks normal. I would recommend unfortunately that he have an amputation for his left foot fourth toe osteomyelitis. He agrees to proceed. We discussed treatment options, risks, benefits, rehab, and recovery. An informed consent was obtained and he agreed to proceed. I would like for him to have some intravenous antibiotics to address the cellulitis as well as elevate for swelling, and I think both of these will help promote a better wound healing. Length of the amputation is yet to be determined and there is a small possibility of leaving the wound open, which he would prefer not to do. Plan is to proceed with surgery on . Elevate. Continue offloading. Cold [employer] applied.
--- NOTE | 2020-07-09 08:19 | Orthopedic Progress Note ---
Date of Service July 09, 2020 Assessment & Plan (1) Osteomyelitis of toe of left foot: Plan for 4th toe wound debridement and amputation on 07/10/[address] Graham Will need to be NPO p MN. All questions answered. Weight bear on left foot as tolerated with boot on and weight on left heel Informed consent obtained by Dr. Graham and on chart. Continue dressings left foot Continue antibiotics as ordered. Admission and Anticipated Discharge Date Admission Date: July 08, 2020 Subjective patient sitting up in bed this morning. No complaints of pain. States that swelling and redness of leg has improved. He's going to call Orthotics today to update them of the plan and to inquire about modifying his current boot to keep pressure off the lateral side of his foot too. Otherwise feeling well. Physical Exam Physical Exam: Left foot dressings intact. 4th toe swollen and red, nontender due to neuropathy. Left leg with no swelling or calf pain, no erythema of left leg. Tip of 4th toe slightly red, dressings not removed due to plans for surgery tomorrow. Results & Data ([facility]) Vital Signs (Past 12 Hours) Vital Signs Temp Pulse Resp BP Pulse Ox 07/09/20 07:10 37.0 C 70 19 111/72 99 07/08/20 23:13 36.8 C 70 20 101/69 97
[2020-07-09] MEDS: INSULIN ASPART 100 UNITS/ML 3 ML PEN SC SCH ×4 (08:55→21:13)
--- NOTE | 2020-07-09 17:56 | Anesthesiology Consultation ---
Date of Service July 09, 2020 Assessment & Plan (1) Encounter for pre-operative examination: Chart Review Chart Review: Acceptable Risk for Surgery and Patient NOT seen in Pre Admission Testing covid neg 07/08/20. Consults Requested none History Surgery Operation Date: 07/10/20 08:15 Proposed Procedures p Left 4th Toe Amputation, Wound Debridement - Willie Graham MD Height/Weight Height: 5 ft 10 in Weight: 95.4 kg Allergies Allergy/AdvReac Type Severity Reaction Status Date / Time ibuprofen [From Motrin] Allergy Intermediate Hives Verified 07/08/20 10:38 Medications Home Medications Medication Instructions Recorded Confirmed Last Taken amlodipine 10 mg tablet 10 mg PO QAM 08/30/18 07/08/20 07/08/20 atorvastatin 20 mg tablet 20 mg PO QAM 08/30/18 07/08/20 07/08/20 lisinopril 20 mg tablet 20 mg PO QAM 08/30/18 07/08/20 07/08/20 metformin 1,000 mg tablet 1,000 mg PO BID 08/30/18 07/08/20 07/08/20 Saccharomyces boulardii 250 mg 250 mg PO BID 60 Days #120 cap 07/04/20 07/08/20 07/08/20 capsule clindamycin HCl 300 mg capsule 300 mg PO tid 14 Days #42 cap 07/04/20 07/08/20 07/08/20 doxycycline hyclate 100 mg PO BID 07/08/20 07/08/20 07/08/20 empagliflozin [Jardiance] 10 mg PO QAM 07/08/20 07/08/20 07/08/20 Active Medications Generic Name Dose Route Start Last Admin Trade Name Freq PRN Reason Stop Dose Admin Amlodipine Besylate 10 mg 07/09/20 09:00 07/09/20 07:22 Amlodipine Besylate 5 Mg Tab PO 08/08/20 08:59 10 mg QAM EDIS Administration Atorvastatin Calcium 20 mg 07/09/20 09:00 07/09/20 07:21 Atorvastatin 20 Mg Tab PO 08/08/20 08:59 20 mg QAM EDIS Administration Piperacillin Sod/Tazobactam 120 mls @ 30 mls/hr 07/08/20 20:00 07/09/20 17:14 Sod 4.5 gm/ Dextrose IV 08/19/20 19:59 Infused Q8H EDIS Infusion Protocol Vancomycin HCl 1,250 mg/ 275 mls @ 200 mls/hr 07/08/20 22:00 07/09/20 15:11 Sodium Chloride IV 08/19/20 21:59 Infused Q8H EDIS Infusion Insulin Aspart 0 units 07/08/20 16:30 07/09/20 17:40 Insulin Aspart 100 Units/Ml 3 Ml Pen SC 08/07/20 16:29 7 units ACHS EDIS Administration Lisinopril 20 mg 07/09/20 09:00 07/09/20 07:21 Lisinopril 20 Mg Tab PO 08/08/20 08:59 20 mg QAM EDIS Administration Saccharomyces Boulardii 250 mg 07/08/20 21:00 07/09/20 07:21 Saccharomyces Boulardii 250 Mg Cap PO 08/07/20 20:59 250 mg BID EDIS Administration Past Medical History Medical History Acquired hallux valgus of right foot Acquired hammer toe of right foot Callus Diabetes mellitus, type II Foot ulcer due to secondary DM Hallux valgus (acquired), left foot Hammertoe of left foot Hypercholesterolemia Hypertension Past Family History Family History Other Diabetes Lung cancer Past Surgical History Surgical History Status post right foot surgery Social History Smoking Status: Never smoker tobacco type: smokeless tobacco Do You Dip or Chew Tobacco: Yes Hx Alcohol Use: Yes Alcohol type: beer and hard liquor Alcohol Intake Frequency Comment: a casual drink every 6 or so months Hx Substance Use: No Physical Exam Vital Signs Last Vital Signs Temp 37.1 C 07/09/20 15:17 Pulse 72 07/09/20 15:17 Resp 18 07/09/20 15:17 BP 106/71 07/09/20 15:17 Pulse Ox 97 07/09/20 15:17 Testing Laboratory Results 07/09/20 06:52 07/09/20 06:52 07/08/20 Unknown Gram Stain - Final Toe,Left Fourth Wound Culture - Preliminary Group B Beta Strep 07/08/20 10:19 Aerobic Blood Culture - Preliminary Blood No growth in Aerobic bottle after 24 hours. Anaerobic Blood Culture - Preliminary No growth in Anaerobic bottle after 24 hours. 07/08/20 10:00 Aerobic Blood Culture - Preliminary Blood No growth in Aerobic bottle after 24 hours. Anaerobic Blood Culture - Preliminary No growth in Anaerobic bottle after 24 hours. 07/09/20 07/09/20 07/09/20 16:53 12:06 08:04 POC Glucose 118 H 131 H 124 H
[2020-07-09] MEDS ORDERED: VANCOMYCIN TROUGH ONE (21:30)
--- NOTE | 2020-07-09 21:40 | Hospitalist Progress Note ---
Date of Service July 09, 2020 Assessment & Plan (1) Osteomyelitis of toe of left foot: Plan for 4th toe wound debridement and amputation on 07/10/[address] Graham. Cont Zosyn. (2) Cellulitis of toe of left foot: Zosyn (3) Diabetic ulcer of toe of left foot associated with diabetes mellitus due to underlying condition, with necrosis of bone: Diabetic foot ulcer present on the plantar aspect of his foot. Known h/o peripheral neuropathy. This issue was POA. Cont wound care efforts. (4) Diabetes mellitus, type II: Hold home agents SSI while in-patient BSG AC HS A1C in am. (5) Hypertension: Controlled on amlodipine and lisinopril per home regimen. (6) DVT prophylaxis: DVT Ppx: SQ heparin Code status: FULL Dispo-to home after procedure to remove left 4th toe. Anastasiia Schultz DO [facility] Hospitalist Admission and Anticipated Discharge Date Admission Date: July 08, 2020 Subjective 49 yo diabetic smoker who presents with a new osteomyelitis infection of his left fourth toe. He is undergoing amputation of this in am. Doing well on Zosyn overall. No other issues reported this evening. Review of Systems Review of Systems: All systems reviewed & are unremarkable except as noted in Subjective Physical Exam Physical Exam: CONSTITUTIONAL: WNWD, vitals as above, generally well- appearing EYES: normal conjunctivae, no scleral icterus ENT: external ear and nose normal, MMM RESPIRATORY: clear to auscultation bilaterally, no crackles, rales or wheezes, normal respiratory effort CARDIOVASCULAR: regular rate and rhythm, S1 and 2 heard without murmurs, gallops or rubs, no JVD, no peripheral edema GASTROINTESTINAL: soft, nontender, nondistended. MUSCULOSKELETAL: strength 5/5 throughout, head is normocephalic and atraumatic SKIN: warm and dry, left fourth wound is wrapped with bandage that is c/d/i NEUROLOGIC: CN 2-12 grossly intact, no sensory deficit, normal cognition, normal speech, no gross focal deficits. Ambulatory PSYCHIATRIC: alert cooperative and oriented to person, place and time. Results & Data Results & Data ([facility]) Vital Signs (Past 12 Hours) Vital Signs Temp Pulse Resp BP Pulse Ox 07/09/20 15:17 37.1 C 72 18 106/71 97 Laboratory Results Short CBC 07/09/20 Range/Units 06:52 WBC 6.73 (4.8-10.8) K/uL Hgb 14.1 (14.0-18.0) g/dL Hct 40.4 L (42-52) % Plt Count 272 (130-400) K/uL BMP 07/09/20 06:52 Sodium 134 L Potassium 4.7 Chloride 103 Carbon Dioxide 27 BUN 22 H Creatinine 1.04 Glucose 124 H Calcium 9.6 Medications Administered Current Inpatient Medications Acetaminophen (Acetaminophen 325 Mg Tab) 650 mg PO Q4H PRN PRN Reason: pain/fever Stop: 08/07/20 14:52 Amlodipine Besylate (Amlodipine Besylate 5 Mg Tab) 10 mg PO QAM [facility] Stop: 08/08/20 08:59 Last Admin: 07/09/20 07:22 Dose: 10 mg Documented by: Atorvastatin Calcium (Atorvastatin 20 Mg Tab) 20 mg PO QAM [facility] Stop: 08/08/20 08:59 Last Admin: 07/09/20 07:21 Dose: 20 mg Documented by: Dextrose (Dextrose 50% 50 Ml Syringe) 25 - 50 ml IV UD PRN; Protocol PRN Reason: Hypoglycemia Protocol Stop: 08/07/20 15:34 Glucagon (Glucagon For Inj 1 Mg Vial) 1 mg SQ UD PRN; Protocol PRN Reason: Hypoglycemia Protocol Stop: 08/07/20 15:34 Glucose (Glucose 10 Tabs/Tube) 4 - 8 tabs PO UD PRN; Protocol PRN Reason: Hypoglycemia Protocol Stop: 08/07/20 15:34 Glucose (Glucose 40% Gel 15 Gm Tube) 15 - 30 gm PO UD PRN; Protocol PRN Reason: Hypoglycemia Protocol Stop: 08/07/20 15:34 Piperacillin Sod/Tazobactam (Sod 4.5 gm/ Dextrose) 120 mls @ 30 mls/hr IV Q8H EDIS; Protocol Stop: 08/19/20 19:59 Last Admin: 07/09/20 19:04 Dose: 30 mls/hr Documented by: Vancomycin HCl 1,250 mg/ (Sodium Chloride) 275 mls @ 200 mls/hr IV Q8H EDIS Stop: 08/19/20 21:59 Last Infusion: 07/09/20 15:11 Dose: Infused Documented by: Insulin Aspart (Insulin Aspart 100 Units/Ml 3 Ml Pen) 0 units SC ACHS [facility] Stop: 08/07/20 16:29 Last Admin: 07/09/20 21:13 Dose: Not Given Documented by: Lisinopril (Lisinopril 20 Mg Tab) 20 mg PO QAM [facility] Stop: 08/08/20 08:59 Last Admin: 07/09/20 07:21 Dose: 20 mg Documented by: Miscellaneous (Carbohydrates For Hypoglycemia ) 15 - 30 gm PO UD PRN PRN Reason: Hypoglycemia Protocol Stop: 08/07/20 15:34 Miscellaneous Information (Vancomycin Consult Active) 1 ea N/A UD PRN PRN Reason: Consult Stop: 08/07/20 13:19 Miscellaneous Information (Piperacill/Tazobac Consult Active) 1 ea N/A UD PRN PRN Reason: Consult Stop: 08/07/20 13:19 Ondansetron HCl (Ondansetron Inj 2 Mg/Ml 2 Ml Vial) 4 mg IV Q6H PRN PRN Reason: Nausea Stop: 08/07/20 14:52 Polyethylene Glycol (Polyethylene (Miralax) 17 Gm Pack) 17 gm PO DAILY PRN PRN Reason: Constipation Stop: 08/07/20 14:52 Saccharomyces Boulardii (Saccharomyces Boulardii 250 Mg Cap) 250 mg PO BID [facility] Stop: 08/07/20 20:59 Last Admin: 07/09/20 20:53 Dose: 250 mg Documented by:
[2020-07-10] MEDS: PIPERACILLIN/TAZOBACTAM 4.5 GM in DEXTROSE 5% 100 ML IV SCH ×3 (04:04→20:32)
[2020-07-10] MEDS ORDERED: Nursing to Pharmacy Communication SCH ×2 (04:30→12:00)
[2020-07-10] MEDS ORDERED: VANCOMYCIN TROUGH ONE (05:30)
[2020-07-10] MEDS ORDERED: INSULIN ASPART 100 UNITS/ML 3 ML PEN SC SCH (06:00)
[2020-07-10 06:39] LABS: Hematocrit (blood only) 41.6 % (42-52); Hemoglobin 14.5 g/dL (14.0-18.0); Mean Corpuscular Hemoglobin 29.2 pg (25-34); Mean Corpuscular Hgb Conc 34.9 g/dL (32-36); Mean Corpuscular Volume 83.7 fL (80-100); Mean Platelet Volume 9.3 fL (7.4-10.4); Platelet Count 239 K/uL (130-400); RDW Coefficient of Variation 12.6 % (11.5-14.5); RDW Standard Deviation 38.1 fL (36.4-46.3); Red Blood Count 4.97 M/uL (4.7-6.1); White Blood Count 5.83 K/uL (4.8-10.8)
[2020-07-10] MEDS ORDERED: MIDAZOLAM HCL 1 MG/ML 2ML VIAL ONE (06:42)
[2020-07-10] MEDS ORDERED: fentaNYL citrate 100 MCG/2 ML VIAL ONE (06:42)
[2020-07-10] MEDS ORDERED: PROPOFOL IV EMULSION 10 MG/ML 20 ML VIAL IV ONE (06:42)
[2020-07-10] MEDS ORDERED: ONDANSETRON INJ 2 MG/ML 2 ML VIAL ONE (06:42)
[2020-07-10 07:10] LABS: Estimated Average Glucose 171 mg/dl; Hemoglobin A1C 7.6 % (4.5-5.6)
[2020-07-10 07:18] LABS: Calcium 9.5 mg/dl (8.5-10.1); Creatinine Clr Calc Pharmacy 92.5 ml/min; Est GFR (African American) 88.9; Est GFR (Non-African American) 76.7; Potassium 4.4 mmol/L (3.5-5.1)
[2020-07-10] MEDS ORDERED: LACTATED RINGER'S 1,000 ML IV ONE (07:38)
[2020-07-10] MEDS ORDERED: HYDROmorphone INJ 2 MG/ML SYR/VIAL IV PRN (07:51)
[2020-07-10] MEDS ORDERED: ePHEDrine sulfate 50 MG/ML AMP IV PRN (07:51)
[2020-07-10] MEDS ORDERED: ATROPINE SULFATE 0.1 MG/ML 10ML SYR IV PRN (07:51)
[2020-07-10] MEDS ORDERED: fentaNYL citrate 100 MCG/2 ML VIAL IV PRN (07:51)
[2020-07-10] MEDS ORDERED: ONDANSETRON INJ 2 MG/ML 2 ML VIAL IV PRN (07:51)
--- NOTE | 2020-07-10 08:08 | History & Physical Bridge Note ---
Date of Service July 10, 2020 History & Physical Bridge Note I have examined the patient, reviewed the History & Physical and in the interval since the performance of the History & Physical I have noted the following changes of clinical significance: no changes noted
[2020-07-10] MEDS ORDERED: LIDOCAINE 1% LOCAL 20 ML VIAL ONE (08:23)
[2020-07-10] MEDS ORDERED: BUPIVACAINE 0.5 % 5 MG/1 ML MPF 30ML VIAL ONE (08:23)
--- NOTE | 2020-07-10 09:33 | Pharmacy Report ---
Pharmacy Abx Dose Short Note - Date of Service July 10, 2020 - Assessment & Plan Assessment 49 year old M receiving IV Vancomycin + Zosyn for treatment of osteomyelitis of his toe Plan for amputation by Dr Graham today 07/10/20 Day # 3 of antimicrobial therapy. Plan Vancomycin * Trough level of 24.7 mcg/mL is supratherapeutic * Change to 1000 mg IV every 8 hours * Goal trough level for osteomyelitis : ~ 20 mcg/mL * Trough level ordered for: 07/11/20 prior to 1000 dose Zosyn 4.5g IV Q8H for bone infection and CrCl > 20ml/min Pharmacy will continue to follow and will adjust dose/frequency as necessary. Thank you.
--- NOTE | 2020-07-10 09:44 | Fluoroscopy Report ---
FL toe LT 2V CLINICAL HISTORY: LEFT 4TH TOE AMPUTATION COMPARISON STUDY: 07/08/2020 FLUOROSCOPY TIME: 1 seconds. NUMBER OF FLUOROSCOPIC IMAGES: 1 FINDINGS: A single fluoroscopic spot image demonstrates amputation of the fourth toe at the level of the metatarsal phalangeal joint. IMPRESSION: Fourth toe amputation at the level of the metatarsal phalangeal joint. ACT 112: Negative or not required by law. Electronically signed by: Jesus Manuel Muir M.D. 07/10/2020 9:42 AM
--- NOTE | 2020-07-10 10:00 | Operative Report ---
Post Operative Report Pre & Post Diagnosis Operation Date: 07/10/20 08:15 Pre-Op Diagnosis: Osteomyelitis of toe of left foot Post-Op Diagnosis: Osteomyelitis of toe of left foot I identified the patient and participated in the time-out.: Yes Procedure Operation Date: 07/10/20 08:15 Actual Procedures p Left 4th Toe Amputation, Wound Debridement of plantar metatarsal phalangeal ulcer (Left) - Willie Graham MD Surgeon Willie Graham M.D. Sap Specialist Bess Leach PA-C Estimated Blood Loss 3 Findings Consistent with Post-Op Diagnosis Specimens Left 4th toe Anesthesia Type General Complications none Description of Procedure Patient was taken to the operating room, placed under general anesthesia. Time out performed, prepped and draped in routine sterile fashion. I was present during the entire procedure and assisted with tissue retraction, toe excision, irrigation, debridement, and closure. Dressings were applied, and she was awakened and taken to the recovery room in stable condition. Please see Dr. Graham's operative report for further detail regarding this procedure. I attest to the content of the Intraoperative Record and any orders documented therein. Any exceptions are noted below.
--- NOTE | 2020-07-10 10:04 | Operative Report ---
Post Operative Report Pre & Post Diagnosis Operation Date: 07/10/20 08:15 Pre-Op Diagnosis: Osteomyelitis of fourth toe of left foot, plantar ulceration under the left foot first metatarsophalangeal joint Post-Op Diagnosis: Same I identified the patient and participated in the time-out.: Yes Procedure Operation Date: 07/10/20 08:15 Actual Procedures p Left 4th Toe Amputation, Wound Debridement of plantar metatarsal phalangeal ulcer (Left) - Willie Graham MD Surgeon Willie Graham MD [employer] Bess Leach. No resident or fellow available. Estimated Blood Loss 3 Findings Consistent with Post-Op Diagnosis Specimens Left fourth toe. Drains None Anesthesia Type General Regional Complications none Disposition Accompanied Patient To Recovery: No Disposition: Recovery Room Indications Rene is 49. He is diabetic and neuropathic. He has a benign-appearing ulcer underneath the first metatarsal phalangeal joint of the left foot. He does not have an Achilles heel cord contracture. About 1 week ago he developed an ulceration on the fourth toe from his bandages supposedly. This rapidly progressed with an ulceration and bony destruction consistent with osteomyelitis clinically and radiographically. He is taken to surgery for debridement of the ulceration and amputation of the osteomyelitic toe. Description of Procedure Informed consent obtained. Patient identified. He identified the operative site as the left foot first metatarsophalangeal joint plantar aspect and the left fourth toe. A preoperative surgical timeout was performed. The patient was already on preoperative intravenous Unasyn which finished just prior to surgery. I marked the surgical sites with my initials. He was positioned supine on the OR table with a tourniquet just below the peroneal nerve on the left calf and a bump under the left hip. The leg was prescrubbed with Betadine and then prepped with Betadine in the usual sterile fashion. SCDs for DVT prophylaxis accompanied by early mobility and subcutaneous heparin postoperatively as indicated. The limb was exsanguinated with gravity and the tourniquet inflated to 225 mmHg. The plantar ulceration underneath the first metatarsophalangeal joint was excoriated on its surface with a curette. I then excised sharply with a scalpel the hypertrophic surrounding keratotic tissue and the margin of the wound itself to a bleeding bed. There was no exposed bone. There was no abscess or purulent drainage. There was no drainage. There was no undermining. The lesion was 25 mm x 35 mm and was full-thickness through the epidermis and dermis down into the subcutaneous tissues with a good healthy granulating bed. At the conclusion of the procedure this was dressed with a Aquacel Ag AG. I recommend continued offloading and treatment in the wound care clinic. Because there was not a heel cord contracture evident clinically I did not feel that a Achilles tendon lengthening or Tammy procedure would be of any benefit. Our attention was then turned to the fourth toe. About a centimeter distal to the webspace on the lateral aspect there was a 1 cm ulceration full-thickness with necrotic tissue present within it as well as visible and palpable bone. There was purulent drainage noted. There was hyperkeratotic dried skin on the top which was debrided. The remaining tissue throughout the toe looked healthy. I thought about different incisions including a bob jarvisnis racquet. I ultimately ended up doing a longitudinal incision and then doing a modified tennis racquet type approach. I incised just at the level of the metatarsophalangeal joint. The extensor tendon was dissected out and transected. Based upon the level of the ulceration and the remaining bone it was not possible to save any proximal phalanx because of its proximity to the wound and the length of bone that would remain would be small and nonfunctional. I therefore elected to amputate through the metatarsophalangeal joint. I excised several millimeters proximal to the ulceration brought this plantar and distal and and then lateral and dorsal to connect to the longitudinal incision. This essentially filleted out the ulceration and bone laterally and preserved a large medial and plantar skin flap. I carefully dissected at the level of the e xtensor mechanism to preserve vascularity to the skin flap. This was carried out back to the level of the metatarsal phalangeal joint. The flexor tendons were pulled into the wound and transected and the resected toe was sent for specimen. The proximal phalanx was fractured and eroded at its midportion with softened bone and necrotic tissue present within the specimen. There was an area distally and medially where some infection appeared to be proceeding from deep to superficial but had not erupted out. This was eventually excised. The tourniquet was let down and meticulous hemostasis was performed with electrocautery. There is good circulation noted within the skin flaps. The patient's had 3 prior cultures and I did not think an additional culture would be useful. Irrigation was performed with a liter of sterile saline. The remaining tissue appeared healthy without any evidence of infection and the entire infected bone and ulceration had been excised. I then reapproximated proximally matching up the skin creases. I then went with a dorsal to plantar modified [place] closure distally after resecting most of the redundant distal skin. This was loosely approximated laterally and 1/4 inch iodoform gauze packing was inserted. Local anesthetic was injected into the skin of the fourth toe incision. The leg was cleaned with wet and dry sponges. Fluffs were placed between the toes. Aquacel Ag on the plantar first MTP ulceration. Xeroform 4 x 4's cast padding ABD Eliseo wrap cam boot. He was awakened from anesthesia without difficulty and taken to the recovery room in stable condition. The resected toe sent for specimen. There were no complications. Counts were correct. Blood loss is estimated to be 3 cc. At the conclusion of the operation I contacted his and discussed with her my findings. The plan at this point will be at admitted to the hospital on the medicine service. Continue to elevate use cam boot and offload. Pull packing in 1 to 2 days. He will need intravenous antibiotics based upon sensitivities. I am confident that the entirety of the infected tissue was removed with the amputation although some remaining foci of the bacteria could be present within the preserve soft tissues due to the nature of the surgical procedure. He may weight-bear as tolerated. I attest to the content of the Intraoperative Record and any orders documented therein. Any exceptions are noted below.
[2020-07-10] MEDS ORDERED: NALOXONE HCL 0.4 MG/1 ML VIAL/CARP IV PRN (10:45)
[2020-07-10] MEDS ORDERED: TAMSULOSIN HCL 0.4 MG CAP PO PRN (10:45)
--- NOTE | 2020-07-10 11:14 | Anesthesiology Progress Note ---
Date of Service July 10, 2020 Anesthesia Post Procedure Vital Signs Vital Signs: Temp Pulse Pulse Resp BP Pulse Ox 07/10/20 11:05 68 16 106/59 L 98 07/10/20 10:30 70 18 105/77 96 07/10/20 10:20 36.2 C L 72 18 106/66 97 07/10/20 10:10 72 14 119/87 98 07/10/20 10:00 75 14 101/77 96 07/10/20 09:51 36.4 C L 67 19 112/71 99 07/10/20 07:55 36.5 C 68 16 115/76 98 07/10/20 07:03 36.8 C 70 16 107/70 97 07/09/20 22:42 36.6 C 69 18 100/66 97 07/09/20 15:17 37.1 C 72 18 106/71 97 Transfer of Care Handoff Completed per policy Notes Mental Status: alert / awake / arousable and participated in evaluation Patient Amnestic to Procedure: Yes Nausea / Vomiting: adequately controlled Pain: adequately controlled Airway Patency, RR, SpO2: stable & adequate BP & HR: stable & adequate Hydration State: stable & adequate Anesthetic Complications: no major complications apparent and Pt Satisfied with anesthetic care
[2020-07-10] MEDS: lisinopril 20 MG TAB PO SCH (11:26)
[2020-07-10] MEDS: SACCHAROMYCES BOULARDII 250 MG CAP PO SCH ×2 (11:26→20:33)
[2020-07-10] MEDS: amLODIPine BESYLATE 5 MG TAB PO SCH (11:27)
[2020-07-10] MEDS: ATORVASTATIN 20 MG TAB PO SCH (11:27)
[2020-07-10] MEDS: SODIUM CHLORIDE 0.9% 1000ML 1,000 ML IV SCH ×2 (11:31→21:19)
[2020-07-10] MEDS: VANCOMYCIN HCL 1,000 MG in SODIUM CHLORIDE 0.9% 250 ML IV SCH ×2 (11:41→18:20)
[2020-07-10] MEDS: INSULIN ASPART 100 UNITS/ML 3 ML PEN SC SCH ×3 (14:11→20:39)
--- NOTE | 2020-07-10 21:15 | Hospitalist Progress Note ---
Date of Service July 10, 2020 Assessment & Plan (1) Osteomyelitis of toe of left foot: 4th toe wound debridement and amputation on 07/10/[address] Graham. Cont Zosyn. Vanc started this am. ID consult for long-term antibiotic plan and follow-up. Cultures reveal group B strep. 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 Known h/o peripheral neuropathy. This issue was POA. Cont wound care efforts. (4) Diabetes mellitus, type II: Uncontrolled with A1C 7.6. Hold home agents. SSI while in-patient. BSG AC HS-glucose currently at goal. (5) Hypertension: Controlled on amlodipine and lisinopril per home regimen. (6) DVT prophylaxis: SCDs/ambulation post-procedure. Chemoprophylaxis recommended when ok with surgery. Code status: FULL Dispo-to home after procedure to remove left 4th toe, pending ID recommendations for antibiotics. Anastasiia Schultz DO [facility] Hospitalist Admission and Anticipated Discharge Date Admission Date: July 08, 2020 Subjective 49 yo diabetic smoker who presents with a new osteomyelitis infection of his left fourth toe. Underwent amputation. Doing well on Zosyn overall. No other issues reported this evening. Denies any pain Review of Systems Review of Systems: All systems reviewed & are unremarkable except as noted in Subjective Physical Exam Physical Exam: CONSTITUTIONAL: WNWD, vitals as above, generally well- appearing EYES: normal conjunctivae, no scleral icterus ENT: external ear and nose normal, MMM RESPIRATORY: clear to auscultation bilaterally, no crackles, rales or wheezes, normal respiratory effort CARDIOVASCULAR: regular rate and rhythm, S1 and 2 heard without murmurs, gallops or rubs, no JVD, no peripheral edema GASTROINTESTINAL: soft, nontender, nondistended. MUSCULOSKELETAL: strength 5/5 throughout, head is normocephalic and atraumatic SKIN: warm and dry, left fourth wound is wrapped with bandage that is c/d/i NEUROLOGIC: CN 2-12 grossly intact, no sensory deficit, normal cognition, normal speech, no gross focal deficits. Ambulatory PSYCHIATRIC: alert cooperative and oriented to person, place and time. Results & Data Results & Data ([facility]) Vital Signs (Past 12 Hours) Vital Signs Temp Pulse Pulse Resp BP BP Pulse Ox 07/10/20 18:59 37 C 99 H 18 103/67 96 07/10/20 15:13 88 16 101/67 96 07/10/20 13:49 37.7 C H 76 16 99/65 L 96 07/10/20 12:47 86 16 112/68 97 07/10/20 11:38 74 16 127/81 98 07/10/20 11:05 68 16 106/59 L 98 07/10/20 10:40 36.3 C L 64 16 105/67 16 L 07/10/20 10:30 70 18 105/77 96 07/10/20 10:20 36.2 C L 72 18 106/66 97 07/10/20 10:10 72 14 119/87 98 07/10/20 10:00 75 14 101/77 96 07/10/20 09:51 36.4 C L 67 19 112/71 99 Laboratory Results Short CBC 07/10/20 Range/Units 06:26 WBC 5.83 (4.8-10.8) K/uL Hgb 14.5 (14.0-18.0) g/dL Hct 41.6 L (42-52) % Plt Count 239 (130-400) K/uL BMP 07/10/20 06:26 Sodium 137 Potassium 4.4 Chloride 103 Carbon Dioxide 26 BUN 19 H Creatinine 1.12 Glucose 117 H Calcium 9.5 Medications Administered Current Inpatient Medications Acetaminophen (Acetaminophen 325 Mg Tab) 650 mg PO Q4H PRN PRN Reason: pain/fever Stop: 08/07/20 14:52 Amlodipine Besylate (Amlodipine Besylate 5 Mg Tab) [facility] Stop: 08/08/20 08:59 Last Admin: 07/10/20 11:27 Dose: 10 mg Documented by: Atorvastatin Calcium (Atorvastatin 20 Mg Tab) 20 mg PO QAM EDIS Stop: 08/08/20 08:59 Last Admin: 07/10/20 11:27 Dose: 20 mg Documented by: Dextrose (Dextrose 50% 50 Ml Syringe) 25 - 50 ml IV UD PRN; Protocol PRN Reason: Hypoglycemia Protocol Stop: 08/07/20 15:34 Glucagon (Glucagon For Inj 1 Mg Vial) 1 mg SQ UD PRN; Protocol PRN Reason: Hypoglycemia Protocol Stop: 08/07/20 15:34 Glucose (Glucose 10 Tabs/Tube) 4 - 8 tabs PO UD PRN; Protocol PRN Reason: Hypoglycemia Protocol Stop: 08/07/20 15:34 Glucose (Glucose 40% Gel 15 Gm Tube) 15 - 30 gm PO UD PRN; Protocol PRN Reason: Hypoglycemia Protocol Stop: 08/07/20 15:34 Piperacillin Sod/Tazobactam (Sod 4.5 gm/ Dextrose) 120 mls @ 30 mls/hr IV Q8H EDIS; Protocol Stop: 08/19/20 19:59 Last Admin: 07/10/20 20:32 Dose: 30 mls/hr Documented by: Vancomycin HCl 1,000 mg/ (Sodium Chloride) 270 mls @ 200 mls/hr IV Q8H EDIS Stop: 08/21/20 09:59 Last Infusion: 07/10/20 19:51 Dose: Infused Documented by: Sodium Chloride (Nss 1000ml) 1,000 mls @ 100 mls/hr IV .Q10H EDIS Stop: 07/11/20 06:00 Last Infusion: 07/10/20 20:35 Dose: 100 mls/hr Documented by: Insulin Aspart (Insulin Aspart 100 Units/Ml 3 Ml Pen) 0 units SC ACHS [facility] Stop: 08/09/20 11:29 Last Admin: 07/10/20 20:39 Dose: 4 units Documented by: Lisinopril (Lisinopril 20 Mg Tab) 20 mg PO QAM EDIS Stop: 08/08/20 08:59 Last Admin: 07/10/20 11:26 Dose: 20 mg Documented by: Miscellaneous (Carbohydrates For Hypoglycemia ) 15 - 30 gm PO UD PRN PRN Reason: Hypoglycemia Protocol Stop: 08/07/20 15:34 Miscellaneous Information (Vancomycin Consult Active) 1 ea N/A UD PRN PRN Reason: Consult Stop: 08/07/20 13:19 Miscellaneous Information (Piperacill/Tazobac Consult Active) 1 ea N/A UD PRN PRN Reason: Consult Stop: 08/07/20 13:19 Naloxone HCl (Naloxone Hcl 0.4 Mg/1 Ml Vial/Carp) 0.1 mg IV Q5M PRN PRN Reason: Oversedation/Resp Depression Stop: 08/09/20 10:44 Ondansetron HCl (Ondansetron Inj 2 Mg/Ml 2 Ml Vial) 4 mg IV Q6H PRN PRN Reason: Nausea Stop: 08/07/20 14:52 Polyethylene Glycol (Polyethylene (Miralax) 17 Gm Pack) 17 gm PO DAILY PRN PRN Reason: Constipation Stop: 08/07/20 14:52 Saccharomyces Boulardii (Saccharomyces Boulardii 250 Mg Cap) 250 mg PO BID EDIS Stop: 08/07/20 20:59 Last Admin: 07/10/20 20:33 Dose: 250 mg Documented by: Tamsulosin HCl (Tamsulosin Hcl 0.4 Mg Cap) 0.4 mg PO QAM PRN PRN Reason: UNABLE to void Stop: 08/09/20 10:44
[2020-07-11] MEDS: VANCOMYCIN HCL 1,000 MG in SODIUM CHLORIDE 0.9% 250 ML IV SCH ×2 (02:20→10:43)
[2020-07-11] MEDS: PIPERACILLIN/TAZOBACTAM 4.5 GM in DEXTROSE 5% 100 ML IV SCH ×2 (04:16→12:40)
[2020-07-11 06:26] LABS: Hematocrit (blood only) 42.2 % (42-52); Hemoglobin 14.7 g/dL (14.0-18.0); Mean Corpuscular Hgb Conc 34.8 g/dL (32-36); Mean Corpuscular Volume 83.2 fL (80-100); Mean Platelet Volume 9.7 fL (7.4-10.4); Platelet Count 281 K/uL (130-400); RDW Coefficient of Variation 12.4 % (11.5-14.5); RDW Standard Deviation 37.3 fL (36.4-46.3); Red Blood Count 5.07 M/uL (4.7-6.1); White Blood Count 9.99 K/uL (4.8-10.8)
[2020-07-11 06:51] LABS: BUN Creatinine Ratio 16.3 (10-20); Calcium 9.5 mg/dl (8.5-10.1); Creatinine Clr Calc Pharmacy 94.2 ml/min; Est GFR (African American) 90.9; Est GFR (Non-African American) 78.4; Potassium 4.3 mmol/L (3.5-5.1)
[2020-07-11] MEDS: lisinopril 20 MG TAB PO SCH (07:36)
[2020-07-11] MEDS: ATORVASTATIN 20 MG TAB PO SCH (07:37)
[2020-07-11] MEDS: amLODIPine BESYLATE 5 MG TAB PO SCH (07:37)
[2020-07-11] MEDS: SACCHAROMYCES BOULARDII 250 MG CAP PO SCH (08:02)
[2020-07-11] MEDS: INSULIN ASPART 100 UNITS/ML 3 ML PEN SC SCH ×3 (09:18→18:33)
[2020-07-11] MEDS ORDERED: VANCOMYCIN TROUGH ONE (09:30)
--- NOTE | 2020-07-11 09:58 | Orthopedic Progress Note ---
Date of Service July 11, 2020 Assessment & Plan (1) Osteomyelitis of toe of left foot: Underwent 4th toe wound debridement and amputation on 07/10/[address] Graham Weight bear on left foot as tolerated with boot on and weight on left heel Advised patient that Dr. Graham will be up later this afternoon to change his dressings. Continue antibiotics as ordered. Admission and Anticipated Discharge Date Admission Date: July 08, 2020 Subjective This 49-year-old male seen this morning. He is day 1 status post left fourth toe amputation due to osteomyelitis infection. Patient is currently ambulating around the room with his boot in place. He states that his pain is well controlled with p.o. pain medication. He is very appreciative the care the Dr. Graham provided him with yesterday. Currently he denies any fever, chills, sweats, lethargy, chest pain, shortness of breath, nausea, vomiting or diarrhea. He states that his left foot is numb but always seems to be that way. Review of Systems Review of Systems: All systems reviewed & are unremarkable except as noted in Subjective Physical Exam Physical Exam: Left lower extremity: Wound dressing were kept in place. Patient is able to extend to 0 degrees and flex to 120 degrees at his knee. He is able to move the digits of his toe, however I was not able to perform capillary refill due to the severe onychomycosis of all of his toenails. He was able to fill me touch the pad of all of his digits. Dressing of the boot appeared to be clean dry and intact. Results & Data ([facility]) Vital Signs (Past 12 Hours) Vital Signs Temp Pulse Resp BP Pulse Ox 07/11/20 07:22 37.4 C 73 18 111/80 99 07/11/20 02:44 36.6 C 69 16 102/67 98 07/10/20 22:47 36.8 C 81 15 104/64 97 Laboratory Results 07/11/20 07/11/20 07/11/20 Range/Units 09:30 08:08 05:30 WBC 9.99 (4.8-10.8) K/uL RBC 5.07 (4.7-6.1) M/uL Hgb 14.7 (14.0-18.0) g/dL Hct 42.2 (42-52) % MCV 83.2 (80-100) fL MCH 29.0 (25-34) pg MCHC 34.8 (32-36) g/dL RDW Std Deviation 37.3 (36.4-46.3) fL RDW Coeff of Meño 12.4 (11.5-14.5) % Plt Count 281 (130-400) K/uL MPV 9.7 (7.4-10.4) fL Sodium (136-145) mmol/L Potassium (3.5-5.1) mmol/L Chloride (98-107) mmol/L Carbon Dioxide (21-32) mmol/L Anion Gap (3-11) BUN (7-18) mg/dl Creatinine (0.6-1.4) mg/dl Est Cr Clr Drug Dosing ml/min Est GFR ( Amer) Est GFR (Non-Af Amer) BUN/Creatinine Ratio (10-20) Glucose (70-99) mg/dl POC Glucose 143 H (70-99) mg/dl Calcium (8.5-10.1) mg/dl Vancomycin Trough Pending 07/11/20 07/10/20 07/10/20 Range/Units 05:30 20:36 16:55 WBC (4.8-10.8) K/uL RBC (4.7-6.1) M/uL Hgb (14.0-18.0) g/dL Hct (42-52) % MCV (80-100) fL MCH (25-34) pg MCHC (32-36) g/dL RDW Std Deviation (36.4-46.3) fL RDW Coeff of Meño (11.5-14.5) % Plt Count (130-400) K/uL MPV (7.4-10.4) fL Sodium 137 (136-145) mmol/L Potassium 4.3 (3.5-5.1) mmol/L Chloride 106 (98-107) mmol/L Carbon Dioxide 27 (21-32) mmol/L Anion Gap 5.0 (3-11) BUN 18 (7-18) mg/dl Creatinine 1.10 (0.6-1.4) mg/dl Est Cr Clr Drug Dosing 94.2 ml/min Est GFR ( Amer) 90.9 Est GFR (Non-Af Amer) 78.4 BUN/Creatinine Ratio 16.3 (10-20) Glucose 131 H (70-99) mg/dl POC Glucose 163 H 141 H (70-99) mg/dl Calcium 9.5 (8.5-10.1) mg/dl Vancomycin Trough 07/10/20 Range/Units 11:43 WBC (4.8-10.8) K/uL RBC (4.7-6.1) M/uL Hgb (14.0-18.0) g/dL Hct (42-52) % MCV (80-100) fL MCH (25-34) pg MCHC (32-36) g/dL RDW Std Deviation (36.4-46.3) fL RDW Coeff of Meño (11.5-14.5) % Plt Count (130-400) K/uL MPV (7.4-10.4) fL Sodium (136-145) mmol/L Potassium (3.5-5.1) mmol/L Chloride (98-107) mmol/L Carbon Dioxide (21-32) mmol/L Anion Gap (3-11) BUN (7-18) mg/dl Creatinine (0.6-1.4) mg/dl Est Cr Clr Drug Dosing ml/min Est GFR ( Amer) Est GFR (Non-Af Amer) BUN/Creatinine Ratio (10-20) Glucose (70-99) mg/dl POC Glucose 142 H (70-99) mg/dl Calcium (8.5-10.1) mg/dl Vancomycin Trough
--- NOTE | 2020-07-11 15:24 | Hospitalist Progress Note ---
Date of Service July 11, 2020 Assessment & Plan (1) Osteomyelitis of toe of left foot: 4th toe wound debridement and amputation on 07/10/[address] Graham. Cont Zosyn. Vanc started this am. ID consult for long-term antibiotic plan and follow-up. Cultures reveal group B strep. 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 Known h/o peripheral neuropathy. This issue was POA. Cont wound care efforts. (4) Diabetes mellitus, type II: Uncontrolled with A1C 7.6. Hold home agents. SSI while in-patient. BSG AC HS-glucose currently at goal. (5) Hypertension: Controlled on amlodipine and lisinopril per home regimen. (6) DVT prophylaxis: SCDs/ambulation post-procedure. Chemoprophylaxis recommended when ok with surgery. Code status: FULL Dispo-to home after procedure to remove left 4th toe, pending ID recommendations for antibiotics. Anastasiia Schultz DO [facility] Hospitalist Admission and Anticipated Discharge Date Admission Date: July 08, 2020 Physical Exam Physical Exam: CONSTITUTIONAL: WNWD, vitals as above, generally well- appearing EYES: normal conjunctivae, no scleral icterus ENT: external ear and nose normal, MMM RESPIRATORY: clear to auscultation bilaterally, no crackles, rales or wheezes, normal respiratory effort CARDIOVASCULAR: regular rate and rhythm, S1 and 2 heard without murmurs, g allops or rubs, no JVD, no peripheral edema GASTROINTESTINAL: soft, nontender, nondistended. MUSCULOSKELETAL: strength 5/5 throughout, head is normocephalic and atraumatic SKIN: warm and dry, left fourth wound is wrapped with bandage that is c/d/i NEUROLOGIC: CN 2-12 grossly intact, no sensory deficit, normal cognition, normal speech, no gross focal deficits. Ambulatory PSYCHIATRIC: alert cooperative and oriented to person, place and time. Results & Data Results & Data ([facility]) Vital Signs (Past 12 Hours) Vital Signs Temp Pulse Resp BP Pulse Ox 07/11/20 07:22 37.4 C 73 18 111/80 99 Laboratory Results Short CBC 07/11/20 Range/Units 05:30 WBC 9.99 (4.8-10.8) K/uL Hgb 14.7 (14.0-18.0) g/dL Hct 42.2 (42-52) % Plt Count 281 (130-400) K/uL BMP 07/11/20 05:30 Sodium 137 Potassium 4.3 Chloride 106 Carbon Dioxide 27 BUN 18 Creatinine 1.10 Glucose 131 H Calcium 9.5 Medications Administered Current Inpatient Medications Acetaminophen (Acetaminophen 325 Mg Tab) 650 mg PO Q4H PRN PRN Reason: pain/fever Stop: 08/07/20 14:52 Amlodipine Besylate (Amlodipine Besylate 5 Mg Tab) 10 mg PO [facility] Stop: 08/08/20 08:59 Last Admin: 07/11/20 07:37 Dose: 10 mg Documented by: Amoxicillin (Amoxicillin 500 Mg Cap) 500 mg PO TID [facility] Stop: 07/21/20 20:59 Atorvastatin Calcium (Atorvastatin 20 Mg Tab) 20 mg PO [facility] Stop: 08/08/20 08:59 Last Admin: 07/11/20 07:37 Dose: 20 mg Documented by: Dextrose (Dextrose 50% 50 Ml Syringe) 25 - 50 ml IV UD PRN; Protocol PRN Reason: Hypoglycemia Protocol Stop: 08/07/20 15:34 Glucagon (Glucagon For Inj 1 Mg Vial) 1 mg SQ UD PRN; Protocol PRN Reason: Hypoglycemia Protocol Stop: 08/07/20 15:34 Glucose (Glucose 10 Tabs/Tube) 4 - 8 tabs PO UD PRN; Protocol PRN Reason: Hypoglycemia Protocol Stop: 08/07/20 15:34 Glucose (Glucose 40% Gel 15 Gm Tube) 15 - 30 gm PO UD PRN; Protocol PRN Reason: Hypoglycemia Protocol Stop: 08/07/20 15:34 Insulin Aspart (Insulin Aspart 100 Units/Ml 3 Ml Pen) [address] [facility] Stop: 08/09/20 11:29 Last Admin: 07/11/20 12:35 Dose: 6 units Documented by: Lisinopril (Lisinopril 20 Mg Tab) 20 mg PO QAM [facility] Stop: 08/08/20 08:59 Last Admin: 07/11/20 07:36 Dose: 20 mg Documented by: Miscellaneous (Carbohydrates For Hypoglycemia ) 15 - 30 gm PO UD PRN PRN Reason: Hypoglycemia Protocol Stop: 08/07/20 15:34 Naloxone HCl (Naloxone Hcl 0.4 Mg/1 Ml Vial/Carp) 0.1 mg IV Q5M PRN PRN Reason: Oversedation/Resp Depression Stop: 08/09/20 10:44 Ondansetron HCl (Ondansetron Inj 2 Mg/Ml 2 Ml Vial) 4 mg IV Q6H PRN PRN Reason: Nausea Stop: 08/07/20 14:52 Polyethylene Glycol (Polyethylene (Miralax) 17 Gm Pack) 17 gm PO DAILY PRN PRN Reason: Constipation Stop: 08/07/20 14:52 Saccharomyces Boulardii (Saccharomyces Boulardii 250 Mg Cap) 250 mg PO BID [facility]IS Stop: 08/07/20 20:59 Last Admin: 07/11/20 08:02 Dose: 250 mg Documented by: Tamsulosin HCl (Tamsulosin Hcl 0.4 Mg Cap) 0.4 mg PO QAM PRN PRN Reason: UNABLE to void Stop: 08/09/20 10:44
--- NOTE | 2020-07-11 18:34 | Discharge Summary ---
Date of Service July 11, 2020 Admission HPI Per Admitting Provider This is a 49yo M with a PMH of DM II, HTN, tobacco use and chronic diabetic foot wound who presents from wound care clinic with new wound on left fourth toe. Patient has been following for wound on plantar aspect of left foot currently treated with clindamycin and doxycycline. Due to severe neuropathy, patient has no feeling in either foot and did not notice a new wound on lateral aspect of fourth toe until 3 days ago, when he took wrapping off of foot and had purulent drainage. Was seen in wound care clinic today for this new wound and was directed to ED for further evaluation. Denies any fever or chills. No headache, lightheadedness, chest pain, shortness of breath, nausea, vomiting, abdominal pain, dysuria, diarrhea or constipation. Admission Exam Per Admitting Provider General Appearance: WD/WN, vitals as above, NAD, sitting up in bed, pleasant, conversing easily Head: normocephalic, atraumatic Eyes: normal inspection, PERRL, conjunctivae normal, anicteric sclerae ENT: external ear and nose normal, oropharynx normal Neck: normal visual inspection, trachea midline, no thyromegaly Respiratory: normal respiratory effort, lungs clear to auscultation, no wheeze, rales, rhonchi. No accessory muscle use Cardiovascular: regular rate, rhythm, no murmur, normal peripheral pulses, no BLE edema. Vessels: no JVD Chest: normal inspection of chest Abdomen/GI: normal bowel sounds, soft, nontender, no hepatosplenomegaly Extremities/Musculoskeletal: L plantar aspect of foot with half dollar size ulceration. No drainage or surrounding erythema. L lateral 4th toe wound with purulent drainage, foul odor. No cyanosis or clubbing, extremities motor strength 5/5 Neurologic: PERRL, EOMI, accommodation nl, no face palsy, no dysarthria, CN's II-XI intact bilaterally and moves all extremities Psychiatric: A+Ox3, euthymic affect Skin: no rashes, normal color, warm/dry Principal Diagnosis Left 4th toe osteomyelitis s/p amputation Discharge Exam CONSTITUTIONAL: WNWD, vitals as above, generally well-appearing EYES: normal conjunctivae, no scleral icterus ENT: external ear and nose normal, MMM RESPIRATORY: clear to auscultation bilaterally, no crackles, rales or wheezes, normal respiratory effort CARDIOVASCULAR: regular rate and rhythm, S1 and 2 heard without murmurs, gallops or rubs, no JVD, no peripheral edema GASTROINTESTINAL: soft, nontender, nondistended. MUSCULOSKELETAL: strength 5/5 throughout, head is normocephalic and atraumatic SKIN: warm and dry, left fourth wound is wrapped with bandage that is c/d/i NEUROLOGIC: CN 2-12 grossly intact, no sensory deficit, normal cognition, normal speech, no gross focal deficits. Ambulatory PSYCHIATRIC: alert cooperative and oriented to person, place and time. Discharge Data Allergies Allergy/AdvReac Type Severity Reaction Status Date / Time ibuprofen [From Motrin] Allergy Intermediate Hives Verified 07/08/20 10:38 Consultations 07/08/20 12:24 ED Decision to Admit Stat 07/08/20 13:47 Consult Orthopedic Surgery Routine 07/10/20 11:50 Consult Infectious Diseases Routine Procedures Performed Operation Date: 07/10/20 08:15 Actual Procedures p Left 4th Toe Amputation,(Left) - Willie Graham MD s Wound Debridement of plantar metatarsal phalangeal ulcer - Willie Graham MD Ordered Studies Laboratory Results WBC 9.99 K/uL (4.8-10.8) 07/11/20 05:30 RBC 5.07 M/uL (4.7-6.1) 07/11/20 05:30 Hgb 14.7 g/dL (14.0-18.0) 07/11/20 05:30 Hct 42.2 % (42-52) 07/11/20 05:30 MCV 83.2 fL (80-100) 07/11/20 05:30 MCH 29.0 pg (25-34) 07/11/20 05:30 MCHC 34.8 g/dL (32-36) 07/11/20 05:30 RDW Std Deviation 37.3 fL (36.4-46.3) 07/11/20 05:30 RDW Coeff of Meño 12.4 % (11.5-14.5) 07/11/20 05:30 Plt Count 281 K/uL (130-400) 07/11/20 05:30 MPV 9.7 fL (7.4-10.4) 07/11/20 05:30 Immature Gran % (Auto) 0.1 % 07/08/20 10:04 Neut % (Auto) 71.0 % 07/08/20 10:04 Lymph % (Auto) 17.6 % 07/08/20 10:04 Izard % (Auto) 6.9 % 07/08/20 10:04 Eos % (Auto) 3.9 % 07/08/20 10:04 Baso % (Auto) 0.5 % 07/08/20 10:04 Neut # (Auto) 5.84 K/uL (1.4-6.5) 07/08/20 10:04 Lymph # (Auto) 1.45 K/uL (1.2-3.4) 07/08/20 10:04 Izard # (Auto) 0.57 K/uL (0.11-0.59) 07/08/20 10:04 Eos # (Auto) 0.32 K/uL (0-0.5) 07/08/20 10:04 Baso # (Auto) 0.04 K/uL (0-0.2) 07/08/20 10:04 Immature Gran # (Auto) 0.01 K/uL (0.00-0.02) 07/08/20 10:04 ESR 35 mm/hr (0-15) H 07/08/20 10:04 Sodium 137 mmol/L (136-145) 07/11/20 05:30 Potassium 4.3 mmol/L (3.5-5.1) 07/11/20 05:30 Chloride 106 mmol/L (98-107) 07/11/20 05:30 Carbon Dioxide 27 mmol/L (21-32) 07/11/20 05:30 Anion Gap 5.0 (3-11) 07/11/20 05:30 BUN 18 mg/dl (7-18) 07/11/20 05:30 Creatinine 1.10 mg/dl (0.6-1.4) 07/11/20 05:30 Est Cr Clr Drug Dosing 94.2 ml/min 07/11/20 05:30 Est GFR ( Amer) 90.9 07/11/20 05:30 Est GFR (Non-Af Amer) 78.4 07/11/20 05:30 BUN/Creatinine Ratio 16.3 (10-20) 07/11/20 05:30 Glucose 131 mg/dl (70-99) H 07/11/20 05:30 POC Glucose 112 mg/dl (70-99) H 07/11/20 16:51 Estimat Average Glucose 171 mg/dl 07/10/20 06:26 Hemoglobin A1c 7.6 % (4.5-5.6) H 07/10/20 06:26 Calcium 9.5 mg/dl (8.5-10.1) 07/11/20 05:30 C-Reactive Protein 1.46 mg/dl (0-0.29) H 07/08/20 10:04 Vancomycin Trough 25.5 mcg/ml (See Comment) 07/11/20 09:30 COVID-19 Eval Order CovFluRsv at [facility] 07/08/20 12:35 SARS-CoV-2 (PCR) NEGATIVE (Negative) 07/08/20 12:35 Influenza Type A (PCR) Negative (Neg) 07/08/20 12:35 Influenza Type B (PCR) Negative (Neg) 07/08/20 12:35 RSV (RT-PCR) Negative (Neg) 07/08/20 12:35 Impressions Foot X-Ray 07/08/20 09:51 XR toe(s) LT min 2V, XR foot LT min 3V routine HISTORY: 49 years-old Male 4th toe, eval fx, osteo chronic pain of the left fourth toe with diabetic ulcer COMPARISON: None TECHNIQUE: 3 views of the left fourth toe with 3 views of the left foot FINDINGS: FOOT: Mild soft tissue swelling of the forefoot. No acute fracture or dislocation. Bipartite medial hallux sesamoid. No significant osteoarthritis. There is a 7 mm area of osseous erosion involving the distal lateral aspect of the fourth proximal phalanx with destruction of the mid and lateral distal articular cortex. There is associated moderate joint space narrowing of the fourth PIP joint. Moderate fourth digit soft tissue swelling. TOES: Osseous erosion as above involving the fourth proximal phalanx. IMPRESSION: Subcentimeter area of osteomyelitis involves the distal lateral aspect of the fourth proximal phalanx with partial destruction of the distal articular cortex. Moderate associated joint space narrowing of the fourth PIP joint is suspicious for associated septic arthropathy. ACT 112: Negative or not required by law. The above report was generated using voice recognition software. It may contain grammatical, syntax or spelling errors. Electronically signed by: Shakir Kamara M.D. 07/08/2020 10:28 AM Toe X-Ray 07/10/20 08:15 FL toe LT 2V CLINICAL HISTORY: LEFT 4TH TOE AMPUTATION COMPARISON STUDY: 07/08/2020 FLUOROSCOPY TIME: 1 seconds. NUMBER OF FLUOROSCOPIC IMAGES: 1 FINDINGS: A single fluoroscopic spot image demonstrates amputation of the fourth toe at the level of the metatarsal phalangeal joint. IMPRESSION: Fourth toe amputation at the level of the metatarsal phalangeal joint. ACT 112: Negative or not required by law. Electronically signed by: Jesus Manuel Muir M.D. 07/10/2020 9:42 AM Hospital Course (1) Osteomyelitis of toe of left foot: 4th toe wound debridement and amputation on 07/10/[address] Graham. Zosyn and Vanc given in the hospital. No sepsis during his course. ID consult for long-term antibiotic plan and follow-up. Cultures reveal group B strep. As there was no residual bone infection, he only requires a short course of antibiotics. He was given amoxicillin for a total of 10-14 days from 07/08 or until cellulitis resolves with continued wound care recommended. At time of discharge, he was hemodynamically stable and afebrile, and pain was well managed. He was ambulating independently and tolerating PO. He was mentating clearly. Close ortho, and wound care follow-up was recommended. (2) Cellulitis of toe of left foot: as above. (3) Diabetic ulcer of toe of left foot associated with diabetes mellitus due to underlying condition, with necrosis of bone: Diabetic foot ulcer present on the plantar aspect of his foot. Known h/o peripheral neuropathy. This issue was POA. Cont wound care efforts and improved control of A1C as outpatient. Total Time Total Time Spent Total Time Spent (In Minutes): 60 Discharge Plan Discharge Items Patient Disposition: Home - Self-Care Reason For Visit: OSTEO L FOOT Discharge Diagnosis: Left 4th toe osteomyelitis s/p amputation Condition on Discharge: Good Activity: Per Instructions section Non-emergency contact: Primary Care Provider and Surgeon Call non-emergency contact if: you have any medication questions, your symptoms worsen, your pain is not controlled, your pain is worsening, your pain is unusual for you, your pain is concerning for you, you have a fever, your wound has increased redness, your wound has increased drainage and your wound pain has increased Follow-up/Referrals: Bess Leach PA-C [Physician Respiratory Therapy Assistant] - 07/18/20 10:45 am Wilner Sanon DO [Primary Care Provider] - (Date & Time 07/17/2020 11:20 AM Provider Wilner Sanon DO Department [facility] ) Diet: Carb Consistent or DM2 Addtl Attending Provider Instructions: Weight-bear as tolerated left foot with cam boot on at all times. Apply most of your weight to your left heel. Use walker or crutches as needed to assist with ambulation. Elevate left foot above your heart to assist with swelling reduction. Apply ice to left foot as needed for pain and swelling. Allowed to do full range of motion of left knee, left hip and left ankle. Allowed to wiggle toes as tolerated. You may change her dressings on Tuesday (yourself or home health nurse may do). Reapply dressings. May change dressings daily or as needed after Tuesday. May also leave dressings on until your follow-up appointment next week. Which ever you prefer. Follow-up in wound care clinic as instructed for left foot plantar wound. Call our office with any increased pain, drainage, redness, warmth, fevers or chills. Follow-up with Dr. Graham's office as scheduled. Addtl Leather Cleaner Provider Instructions: Please take all medications as instructed on discharge list below. You are being placed on a short course of antibiotics for your foot infection. This will need to be followed closely. A primary care follow-up appointment is recommended within one week of discharge to ensure you are still doing well post hospitalization. It was a pleasure taking care of you! Please call if you have any questions or problems. You can reach a [facility] hospitalist on duty at [facility] 24 hours a day by calling [phone]. Take care of yourself. Anastasiia Schultz DO [facility] Hospitalist Pending Studies at Discharge: No Stand-Alone Forms: My [facility] Medications and DC Order Prescriptions: New amoxicillin 500 mg Capsule 500 mg PO TID Qty: 21 RF: 0 Continued amlodipine 10 mg tablet 10 mg PO QAM RF: 0 atorvastatin 20 mg tablet 20 mg PO QAM RF: 0 lisinopril 20 mg tablet 20 mg PO QAM RF: 0 metformin 1,000 mg tablet 1,000 mg PO BID RF: 0 Saccharomyces boulardii [Florastor] 250 mg capsule 250 mg PO BID 60 Days Qty: 120 RF: 0 Jardiance 10 mg tablet 10 mg PO QAM RF: 0 Discontinued clindamycin HCl 300 mg capsule 300 mg PO tid 14 Days Qty: 42 RF: 0 doxycycline hyclate 100 mg tablet 100 mg PO BID RF: 0 Discharge Orders: Discharge Order (Routine); Ordered 07/11/20 Ordered By: Anastasiia Melchor/Other Patient Handouts: Managing Type 2 Diabetes, Foot Care Diabetes Steps Admission Data Admit Date/Time: 07/08/20 13:47 Attending Provider: Anastasiia Schultz Admit Provider: Blue Ross Primary Care Provider: Wilner Sanon Other Providers: [place] ; Willie Graham ; Carlos A Godoy ; Amena Dolan ; Thierry Eubanks I. ; Nba Cook II ; Ashley Denise ; Justin Pederson Other Interventions: Discharge Summary Assessment (RN) Last Done: 07/11/20 19:23
[2020-07-11] MEDS ORDERED: AMOXICILLIN 500 MG CAP PO SCH (21:00)
== END 2020-07-11 19:47 | disposition home or self-care (01) | DRG 617 ==
LOC: ED 08:50 → SUATTDRO 13:47 → 3W 13:47